=== PATIENT | male | born 1940 | race Caucasian/White ===

== ENCOUNTER 2018-01-11 05:51 | Day surgery (SDC) | payer MEDICARE ==
[2017-12-27 11:45] LABS: HEMATOCRIT 42.7 % (37.9-51.0); HEMOGLOBIN 14.7 g/dL (13.5-17.0); MEAN CORPUSCULAR HEMOGLOBIN 33.1 pg (27.0-33.4); MEAN CORPUSCULAR HGB CONC 34.6 g/dL (32.0-36.0); MEAN CORPUSCULAR VOLUME 96 fl (80-97); PLATELET COUNT 203 10^3/uL (150-450); RED BLOOD COUNT 4.46 10^6/uL (4.35-5.55); RED CELL DISTRIBUTION WIDTH 12.5 % (11.5-14.0); WHITE BLOOD COUNT 3.7 10^3/uL (4.0-10.5)
[2017-12-27 11:56] LABS: INTERNATIONAL RATION (INR) 1.02; PARTIAL THROMBOPLASTIN TIME 33.6 SEC (23.5-35.8); PROTHROMBIN TIME 14.1 SEC (11.4-15.4)
[2017-12-27 12:15] LABS: ANION GAP 9 (5-19); BLOOD UREA NITROGEN 18 mg/dL (7-20); CALCIUM 9.6 mg/dL (8.4-10.2); CARBON DIOXIDE 29 mmol/L (22-30); CHLORIDE 104 mmol/L (98-107); GLUCOSE 118 mg/dL (75-110); POTASSIUM 4.4 mmol/L (3.6-5.0)
--- NOTE | 2017-12-27 19:23 | EKG REPORT ---
SEVERITY:- NORMAL ECG - SINUS RHYTHM : Confirmed by: Balbina Virgen 27-Dec-2017 19:21:58
[~2018-01-11 05:51] MED LIST: CEFAZOLIN 1 GM/D5W RTU 1 GM/50 ML RTUPB IV PRN; LACTATED RINGERS 1000 ML IV PRN; LIDOCAINE 0.5% INJ-PF (5 MG/ML) 50 ML SDV SUBCUT PRN; LIDOCAINE 1%/EPINEPHRINE INJ 20 ML VIAL ONE; POVIDONE-IODINE 5% OPH PREP SOLN 30 ML ONE; SODIUM BICARBONATE 8.4% INJ 50 MEQ/50 ML DISP.SYRIN ONE
[2018-01-11] MEDS ORDERED: FENTANYL CITRATE INJ/PF 100 MCG/2 ML AMPUL ONE (07:07)
[2018-01-11] MEDS ORDERED: MIDAZOLAM 2 MG/2 ML INJ ONE (07:07)
[2018-01-11] MEDS ORDERED: LIDOCAINE 2% INJ-PF (20 MG/ML) 10 ML AMPUL ONE (07:07)
[2018-01-11] MEDS ORDERED: PROPOFOL INJ 200 MG/20 ML VIAL IV ONE ×2 (07:08→09:10)
[2018-01-11] MEDS ORDERED: PROMETHAZINE HCL INJ 25 MG/1 ML VIAL IV PRN (08:36)
[2018-01-11] MEDS ORDERED: ONDANSETRON HCL INJ/PF 4 MG/2 ML SDV IV PRN (08:36)
[2018-01-11] MEDS ORDERED: DIPHENHYDRAMINE HCL 50 MG/ML VIAL IV PRN (08:36)
--- NOTE | 2018-01-11 10:23 | Operative Report ---
Operative Report DATE OF SURGERY: 01/11/18 PREOPERATIVE DIAGNOSIS: Biopsy-proven basal cell carcinoma of the left tip of nose POSTOPERATIVE DIAGNOSIS: Same OPERATION: Excision of basal cell carcinoma from the left tip of nose with frozen section margin control and reconstruction with a full-thickness graft taken from the left clavicular area. a bolus tie-over dressing was used to support the graft and anchored in place. SURGEON: QUEENIE WHITFIELD ANESTHESIA: LMAC TISSUE REMOVED OR ALTERED: Basal cell carcinoma COMPLICATIONS: None ESTIMATED BLOOD LOSS: Minimal PROCEDURE: The patient was brought into the operating room. The patient was laid on the operating room table in a supine position. The patient was prepped and draped in a sterile and aseptic fashion. After a timeout we then went ahead and marked the area on the left tip of the nose to be resected. The 12:00 margin the nasion. The 3:00 margin was towards the left side. The 6:00 margin was towards the upper lip. The 9:00 margin was towards the right side. Then went ahead and anesthetize the area with 1% lidocaine with epinephrine. Then went ahead and excise the area. Stitch was placed at 12:00 and it was sent for frozen section. Frozen section results came back that the deep and lateral margins were clear. We irrigated the wound with Betadine sterile water to lyse any remaining cancer cells. We then went ahead and decided that because of the size of the defect we will proceed with a skin graft. Decided to harvest the graft from left clavicular area. We then went ahead and harvest the full-thickness graft. We closed the area with 4-0 Vicryl sutures and the skin was then closed with 4- 0 PDS with knots being tied on the outside and a support stitch in the center. At the end of the case tincture of benzoin and Steri-Strips were applied with a light pressure dressing. Graft was then defatted to the appropriate size and placed into the area of defect. It was then sutured into place with 5-0 Prolene sutures leaving one end long. After all the sutures were placed we then went ahead and applied Xeroform. Then went ahead and created a bolus dressing and tied each suture 180 from each other. Then tied the sutures again to each other. Bacitracin was applied. 2 x 2's were applied and tincture benzoin and the dressing was taped into place. At the end of the case the patient was doing well and brought to the PAR for recovery The approximate size of the lesion was 1.1 cm x 1.1 cm. This dictation was performed using [employer] naturally speaking. If there are any inconsistencies please contact the dictating surgeon. Subjective: No complaints Objective: Vital signs stable afebrile No bleeding Dressing intact Assessment and plan: Doing well. Elevate the operative site. Resume medications. Take antibiotics for 1 day Follow-up Full instructions were given to the patient and family and they understand Portions of this note may be dictated using [employer] voice recognition software. Occasional variations and spelling and vocabulary could be possible and are unintentional. Additionally, there is a chance that some errors may not be caught or corrected. Please notify the offer of any discrepancies noted or if any statements are unclear.
--- NOTE | 2018-01-11 10:25 | Discharge Summary ---
Discharge Summary (SDC) - Discharge Final Diagnosis: Basal cell carcinoma of the left hip and nose Date of Surgery: 01/11/18 Condition: Good Treatment or Instructions: Antibiotics for 1 day, then discontinue. Elevate operative area to decrease swelling. Do not strain, or lift heavy objects. Call for excessive bleeding, increased temperature of 101, uncontrolled pain, or excessive nausea or vomiting. You may reach Dr. Freeman through his office at [phone]. In the event of an emergency after hours, then contact Dr. Freeman through [facility]. Return to the office for a postop check on . The time will be scheduled by the nursing staff of [facility] prior to discharge. Please give the patient a copy of their labs and EKG so they can bring this to their PMD. Thank you Portions of this note may be dictated using [employer] voice recognition software. Occasional variations and spelling and vocabulary could be possible and are unintentional. Additionally, there is a chance that some errors may not be caught or corrected. Please notify the offer of any discrepancies noted or if any statements are unclear. Referrals: DANAE RODRIGUEZ MD [Primary Care Provider] - Discharge Diet: As Tolerated Report the Following to Your Physician Immediately: Unusual Bleeding - Keep head elevated. No bending or straining. Do not disturb the graft. Do not touch the nose. Sneeze through the mouth. Try not to blow the nose.
[2018-01-11 12:21] VITALS: BP 120/78
== END 2018-01-11 12:00 | disposition home or self-care (01) ==
LOC: OROUT 05:51
PROVIDERS: ATTEND Plastic Surgery
PROC: 0HR1X73 Replacement of Face Skin with Autologous Tissue Substitute, Full Thickness, External Approach (ICD-10-PCS; principal; 2018-01-11 08:00)
DX: C44.311 Basal cell carcinoma of skin of nose (principal); L57.0 Actinic keratosis; M06.9 Rheumatoid arthritis, unspecified; Z79.01 Long term (current) use of anticoagulants; Z85.46 Personal history of malignant neoplasm of prostate; Z79.899 Other long term (current) drug therapy; Z79.82 Long term (current) use of aspirin; Z87.891 Personal history of nicotine dependence
CPT/HCPCS: 93005; 36415; 85027; 85610; 85730; 80048; 88305 ×2; 88331 ×2; 93010; 11642; 15260; J2250; J0690; J3490 ×4; J2704; 300; J3010

== ENCOUNTER 2018-06-12 08:46 | Emergency (ER) | payer MEDICARE ==
[2018-06-12] MEDS ORDERED: ONDANSETRON HCL INJ/PF 4 MG/2 ML SDV IV ONE (09:52)
[2018-06-12] MEDS ORDERED: NORMAL SALINE 1000 ML 1,000 ML IV ONE (09:52)
[2018-06-12] MEDS ORDERED: MORPHINE SULFATE 10 MG/ML INJ IV ONE (09:52)
--- NOTE | 2018-06-12 09:56 | ER Document Report ---
ED Medical Screen (RME) - General Chief Complaint: Abdominal Pain Stated Complaint: ABDOMINAL PAIN Time Seen by Provider: 06/12/18 09:52 Mode of Arrival: Ambulatory Information source: Patient Notes: Patient presents with a sudden onset of lower abdominal pain which started this morning. He denies chest pain or shortness of breath. Patient has nausea but no vomiting or diarrhea. He also denies fever or chills. I have greeted and performed a rapid initial assessment of this patient. A comprehensive ED assessment and evaluation of the patient, analysis of test results and completion of the medical decision making process will be conducted by additional ED providers. TRAVEL OUTSIDE OF THE [place] IN LAST 30 DAYS: No - Related Data Allergies/Adverse Reactions: bacitracin [From Neosporin ([id number])] Allergy (Verified 12/27/17 12:02) RASH latex Allergy (Verified 12/27/17 12:02) RASH neomycin [From Neosporin ([id number]-ibq-tvned)] Allergy (Verified 12/27/17 12:02) RASH polymyxin B [From Neosporin (foi-fpi-tftko)] Allergy (Verified 12/27/17 12:02) RASH PLASTIC BANDAID Allergy (Severe, Uncoded 12/27/17 12:02) RASH Past Medical History - Social History Chew tobacco use (# tins/day): No Frequency of alcohol use: None Drug Abuse: None - Past Medical History Cardiac Medical History: Reports: Hx Hypercholesterolemia Denies: Hx Coronary Artery Disease, Hx Heart Attack, Hx Hypertension Pulmonary Medical History: Denies: Hx Asthma, Hx Bronchitis, Hx COPD, Hx Pneumonia Neurological Medical History: 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 Denies: Hx Seizures Renal/ Medical History: Denies: Hx Peritoneal Dialysis Musculoskeltal Medical History: Reports Hx Arthritis - Lower back, LEFT HIP. Past Surgical History: Reports: Hx Orthopedic Surgery - lower back and neck - Immunizations Hx Diphtheria, Pertussis, Tetanus Vaccination: Yes History of Influenza Vaccine for 06/2017 - 11/2017 Season: Yes Influenza Administration Date for 06/2017 - 11/2017 Season: 06/27/17 Physical Exam - Vital signs Vitals: Temp Pulse Resp BP Pulse Ox 98.0 F 99 16 149/79 H 96 06/12/18 08:52 06/12/18 08:52 06/12/18 08:52 06/12/18 08:52 06/12/18 08:52 Course - Vital Signs Vital signs: Temp Pulse Resp BP Pulse Ox 98.0 F 99 16 149/79 H 96 06/12/18 08:52 06/12/18 08:52 06/12/18 08:52 06/12/18 08:52 06/12/18 08:52 Doctor's Discharge - Discharge Referrals: DANAE RODRIGUEZ MD [Primary Care Provider] - Follow up as needed
[2018-06-12 10:24] LABS: ABSOLUTE LYMPHOCYTES (AUTO) 0.4 10^3/uL (0.5-4.7); ABSOLUTE MONOCYTES (AUTO) 0.4 10^3/uL (0.1-1.4); ABSOLUTE NEUT (AUTO) 5.9 10^3/uL (1.7-8.2); BASOPHILS % (AUTO) 0.2 % (0-2); EOSINOPHILS % (AUTO) 0.1 % (0-6); HEMATOCRIT 44.2 % (37.9-51.0); HEMOGLOBIN 15.4 g/dL (13.5-17.0); LYMPHOCYTES % (AUTO) 5.5 % (13-45); MEAN CORPUSCULAR HEMOGLOBIN 33.2 pg (27.0-33.4); MEAN CORPUSCULAR HGB CONC 34.8 g/dL (32.0-36.0); MEAN CORPUSCULAR VOLUME 95 fl (80-97); MONOCYTES % (AUTO) 5.6 % (3-13); PLATELET COUNT 247 10^3/uL (150-450); RED BLOOD COUNT 4.64 10^6/uL (4.35-5.55); RED CELL DISTRIBUTION WIDTH 13.1 % (11.5-14.0); SEGMENTED NEUTROPHILS % (AUTO) 88.6 % (42-78); TOTAL CELLS COUNTED % (AUTO) 100 %; WHITE BLOOD COUNT 6.6 10^3/uL (4.0-10.5)
[2018-06-12 10:37] LABS: ALANINE AMINOTRANSFERASE 26 U/L (21-72); ALBUMIN 4.2 g/dL (3.5-5.0); ALKALINE PHOSPHATASE 99 U/L (38-126); ANION GAP 8 (5-19); ASPARTATE AMINO TRANSFERASE 28 U/L (17-59); BILIRUBIN,DIRECT 0.4 mg/dL (0.0-0.4); BILIRUBIN,TOTAL 0.7 mg/dL (0.2-1.3); BLOOD UREA NITROGEN 20 mg/dL (7-20); CALCIUM 9.9 mg/dL (8.4-10.2); CARBON DIOXIDE 27 mmol/L (22-30); CHLORIDE 106 mmol/L (98-107); GLUCOSE 136 mg/dL (75-110); LIPASE 89.1 U/L (23-300); POTASSIUM 4.3 mmol/L (3.6-5.0); SODIUM 141.4 mmol/L (137-145); TOTAL PROTEIN 7.1 g/dL (6.3-8.2)
[2018-06-12 10:42] LABS: APPEARANCE,URINE CLEAR; BILIRUBIN,URINE NEGATIVE (NEGATIVE); CALCIUM OXALATE CRYSTALS,URINE FEW /HPF; COLOR,URINE YELLOW; GLUCOSE, URINE NEGATIVE (NEGATIVE); KETONES,URINE 25 mg/dL (NEGATIVE); URINE SPECIFIC GRAVITY 1.023
[2018-06-12 10:43] LABS: LEUKOCYTE ESTERASE,URINE NEGATIVE (NEGATIVE); NITRITE,URINE NEGATIVE (NEGATIVE); PROTEIN,URINE 30 mg/dL (NEGATIVE)
--- NOTE | 2018-06-12 11:58 | RADIOLOGY REPORT (SQ) ---
EXAM DESCRIPTION: CT ABD/PELVIS WITH IV ONLY COMPLETED DATE/TIME: 06/12/2018 11:43 am REASON FOR STUDY: abdominal pain COMPARISON: CT chest 02/15/2013 TECHNIQUE: CT scan of the abdomen and pelvis performed using helical scanning technique with dynamic intravenous contrast injection. No oral contrast. Images reviewed with lung, soft tissue, and bone windows. Reconstructed coronal and sagittal MPR images reviewed. Delayed images for evaluation of the urinary system also acquired. All images stored on PACS. All CT scanners at this facility use dose modulation, iterative reconstruction, and/or weight based d osing when appropriate to reduce radiation dose to as low as reasonably achievable (ALARA). [facility]: Dose Right [facility]: CareDose [facility]: Dose Right [facility]: Teradose 4D [facility]: Visible Path CONTRAST TYPE AND DOSE: contrast/concentration: Isovue 350.00 mg/ml; Total Contrast Delivered: 86.0 ml; Total Saline Delivered: 69.0 ml RENAL FUNCTION: Creatinine 1.4 RADIATION DOSE: CT Rad equipment meets quality standard of care and radiation dose reduction techniq ues were employed. CTDIvol: 8.3 - 11.4 mGy. DLP: 1107 mGy-cm.. LIMITATIONS: None. FINDINGS: There is a 4-5 mm right distal ureteral stone at the ureterovesical junction. This causes moderate right hydronephrosis and hydroureter. Stone is best shown on axial image 81 and coronal im age 49. There is high-grade urinary outflow obstruction, with a dense right-sided nephrogram and little excre tion of contrast into the right renal pelvis and ureter on the 5 minutes delay image. There is a right mid-pole 2.5 cm cyst. No masses. No other intrarenal nonobstructive stones. LOWER CHEST: No significant findings. No nodules or infiltrates. LIVER: Normal size. No masses. No dilated ducts. SPLEEN: Normal size. No focal lesions. PANCREAS: No masses. No significant calcifications. No adjacent inflammation or peripancreatic fluid collections. Pancreatic duct not dilated. GALLBLADDER: No identified stones by CT criteria. No inflammatory changes to suggest cholecystitis. ADRENAL GLANDS: No significant masses or asymmetry. RIGHT KIDNEY AND URETER: As above LEFT KIDNEY AND URETER: No solid masses. 1.5 cm right midpole cortical cyst. No significant calcifi cations. No hydronephrosis or hydroureter. AORTA AND VESSELS: No aneurysm. No dissection. Renal arteries, SMA, celiac without stenosis. RETROPERITONEUM: No retroperitoneal adenopathy, hemorrhage or masses. BOWEL AND PERITONEAL CAVITY: Moderate stool throughout the colon. Sigmoid diverticuli without CT si gns of acute diverticulitis No masses or inflammatory changes. No free fluid or peritoneal masses. APPENDIX: Normal. PELVIS: No mass. No free fluid. Normal bladder. ABDOMINAL WALL: No masses. No hernias. BONES: No significant or acute findings. OTHER: No other significant finding. IMPRESSION: 4 to 5 mm distal right ureteral stone causing moderate right hydronephrosis, hydroureter , perinephric stranding in urinary outflow obstruction. TECHNICAL DOCUMENTATION: JOB ID: [id number] Quality ID # [id number]: Final reports with documentation of one or more dose reduction techniques (e.g., Au tomated exposure control, adjustment of the mA and/or kV according to patient size, use of iterative reconstruction technique) 2010 [employer]- All Rights Reserved Reading location - IP/workstation name: [facility]
[2018-06-12] MEDS ORDERED: HYDROCODONE/ACETAMINOPHEN 5-325 MG (6 TAB/ER DISP) PO PRN (12:31)
--- NOTE | 2018-06-12 12:31 | ER Document Report ---
ED General - General Chief Complaint: Abdominal Pain Stated Complaint: ABDOMINAL PAIN Time Seen by Provider: 06/12/18 09:52 Mode of Arrival: Ambulatory TRAVEL OUTSIDE OF THE [place] IN LAST 30 DAYS: No - HPI Patient complains to provider of: Right-sided abdominal pain - Related Data Allergies/Adverse Reactions: bacitracin [From Neosporin ([id number]-acl-fyydw)] Allergy (Verified 12/27/17 12:02) RASH latex Allergy (Verified 12/27/17 12:02) RASH neomycin [From Neosporin ([id number]-adq-wlxzn)] Allergy (Verified 12/27/17 12:02) RASH polymyxin B [From Neosporin (fli-suo-eebov)] Allergy (Verified 12/27/17 12:02) RASH PLASTIC BANDAID Allergy (Severe, Uncoded 12/27/17 12:02) RASH Past Medical History - General Information source: Patient - Social History Smoking Status: Never Smoker Chew tobacco use (# tins/day): No Frequency of alcohol use: None Drug Abuse: None Family History: Reviewed & Not Pertinent Patient has suicidal ideation: No Patient has homicidal ideation: No - Past Medical History Cardiac Medical History: Reports: Hx Hypercholesterolemia Denies: Hx Coronary Artery Disease, Hx Heart Attack, Hx Hypertension Pulmonary Medical History: Denies: Hx Asthma, Hx Bronchitis, Hx COPD, Hx Pneumonia Neurological Medical History: 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 Denies: Hx Seizures Renal/ Medical History: Denies: Hx Peritoneal Dialysis Musculoskeletal Medical History: Reports Hx Arthritis - Lower back, LEFT HIP. Past Surgical History: Reports: Hx Orthopedic Surgery - lower back and neck - Immunizations Hx Diphtheria, Pertussis, Tetanus Vaccination: Yes Hx Pneumococcal Vaccination: 06/27/10 Review of Systems - Review of Systems -: Yes All other systems reviewed and negative Physical Exam - Vital signs Vitals: Temp Pulse Resp BP Pulse Ox 98.0 F 99 16 149/79 H 96 06/12/18 08:52 06/12/18 08:52 06/12/18 08:52 06/12/18 08:52 06/12/18 08:52 - General General appearance: Alert In distress: Mild - HEENT Head: Normocephalic Eyes: Normal Conjunctiva: Normal Cornea: Normal Extraocular movements intact: Yes - Respiratory Respiratory status: No respiratory distress Chest status: Nontender Breath sounds: Normal Chest palpation: Normal - Cardiovascular Rhythm: Regular Heart sounds: Normal auscultation Murmur: No - Abdominal Inspection: Normal Distension: No distension Bowel sounds: Normal - Back Back: CVA tenderness - Marked tenderness along the right side to percussion - Extremities General upper extremity: Normal inspection, Nontender, Normal ROM, Normal strength General lower extremity: Normal inspection, Nontender, Normal ROM, Normal strength - Neurological Neuro grossly intact: Yes Cognition: Normal Orientation: AAOx4 [place] Coma Scale Eye Opening: Spontaneous [place] Coma Scale Verbal: Oriented Aura Coma Scale Motor: Obeys Commands [place] Coma Scale Total: 15 Speech: Normal Cranial nerves: Normal Cerebellar coordination: Normal Motor strength normal: LUE, RUE, LLE, RLE - Psychological Associated symptoms: Normal affect Course - Re-evaluation Re-evalutation: 06/12/18 15:38 77-year-old man presents for evaluation of xi pain. Through triage she had a urinalysis as well as a CMP CBC and CT of the abdomen and pelvis. On examination the patient's obviously uncomfortable he has had stuttering pain along the right side similar to what might be expected from her nephrolithiasis. He has profound tenderness along the right CVA as well as diffuse tenderness through the abdomen. He believes that this may be related to some MiraLAX which he took yesterday. Urinalysis demonstrates vic hematuria, he does have also a nephrolithiasis along the right side. Given that this patient has a known nephrolithiasis at this time believe that likely he is safe for discharge home with return precautions and follow-up with a urologist, he is given strict return precautions related to fever, emesis, or worsening pain. He is going to follow-up, previously he had been diagnosed with prostate cancer status post treatment had been in remission. He has no other obvious abnormalities identified CT imaging, he is complaint free at this time his pain is greatly improved. We will give prescription for brief course of narcotic pain control instructions to utilize ibuprofen as well as to continue his home Flomax as he has previously. - Vital Signs Vital signs: Temp Pulse Resp BP Pulse Ox 98.0 F 99 16 149/79 H 96 06/12/18 08:52 06/12/18 08:52 06/12/18 08:52 06/12/18 08:52 06/12/18 08:52 - Laboratory Result Diagrams: 06/12/18 09:45 06/12/18 09:45 Laboratory results interpreted by me: 06/12/18 06/12/18 06/12/18 09:20 09:45 09:45 Seg Neutrophils % 88.6 H Lymphocytes % 5.5 L Absolute Lymphocytes 0.4 L Creatinine 1.41 H Est GFR ( Amer) 59 L Est GFR (Non-Af Amer) 49 L Glucose 136 H Urine Protein 30 H Urine Ketones 25 H Urine Blood LARGE H Urine Urobilinogen 2.0 H Discharge - Discharge Clinical Impression: Nephrolithiasis Abdominal pain Qualifiers: Abdominal location: unspecified location Qualified Code(s): R10.9 - Unspecified abdominal pain Constipation Qualifiers: Constipation type: unspecified constipation type Qualified Code(s): K59.00 - Constipation, unspecified Condition: Good Disposition: HOME, SELF-CARE Instructions: Ibuprofen (General) ([facility]), Kidney Stone ([facility]) Additional Instructions: Your seen today in the emergency department for your kidney stone. He had an evaluation including a physical exam, tests of your blood, and a CT of your abdomen and pelvis. It looks like you have a kidney stone along the right side. Continue to use your Flomax. Use the pain medicine only as needed prescribed to you. Use ibuprofen every 5-6 hours, 400 mg for pain. Return for fevers higher than 101. Prescriptions: Hydrocodone/Acetaminophen [[place] 5-325 mg Tablet] 1 tab PO Q6H PRN #12 tablet PRN Reason: Referrals: DANAE RODRIGUEZ MD [Primary Care Provider] - Follow up as needed
[2018-06-12 13:28] VITALS: BP 104/61
--- NOTE | 2018-06-13 05:22 | EKG REPORT ---
SEVERITY:- BORDERLINE ECG - SINUS RHYTHM PROBABLE LEFT ATRIAL ABNORMALITY : Confirmed by: Balbina Virgen 13-Jun-2018 05:20:59
== END 2018-06-12 13:24 | disposition home or self-care (01) ==
LOC: ER 08:46
DX: N20.0 Calculus of kidney (principal); K59.00 Constipation, unspecified; R10.9 Unspecified abdominal pain; Z91.040 Latex allergy status; Z88.8 Allergy status to other drugs, medicaments and biological substances; R40.2412 Glasgow coma scale score 13-15, at arrival to emergency department
CPT/HCPCS: 93005; 99284; 96361; 96374; 96375; 36415; 87040; 87086; 83690; 85025; 80053; 81001; 74177; 93010; J2270; J2405; A9270

== ENCOUNTER 2018-06-16 07:53 | Emergency (ER) | payer MEDICARE ==
[2018-06-16] MEDS ORDERED: MORPHINE SULFATE 10 MG/ML INJ IV ONE ×2 (08:13→11:05)
[2018-06-16] MEDS ORDERED: ONDANSETRON HCL INJ/PF 4 MG/2 ML SDV IV ONE ×2 (08:13→11:05)
--- NOTE | 2018-06-16 09:43 | ER Document Report ---
ED GI/ - General Mode of Arrival: Ambulatory Information source: Patient TRAVEL OUTSIDE OF THE [place] IN LAST 30 DAYS: No - General Chief Complaint: Possible Kidney Stone Stated Complaint: FLANK PAIN Time Seen by Provider: 06/16/18 08:05 Notes: 77 year old male that presents to the emergency department today with complaints of right sided flank pain. Patient was seen here 4 days ago and was diagnosed with a kidney stone. Patient was okay after discharge with minimal pain until 0330 this morning when he developed increasing pain. Patient was found to have a 4-5 mm distal ureteral stone then. Patient denies fevers. ( HASEEB VILLARREAL) - Related Data Allergies/Adverse Reactions: bacitracin [From Neosporin ([id number]-rrg-zkijj)] Allergy (Verified 06/16/18 07:54) RASH latex Allergy (Verified 06/16/18 07:54) RASH neomycin [From Neosporin ([id number]-rqq-[id number])] Allergy (Verified 06/16/18 07:54) RASH polymyxin B [From Neosporin (dth-pci-tjfil)] Allergy (Verified 06/16/18 07:54) RASH PLASTIC BANDAID Allergy (Severe, Uncoded 06/16/18 07:54) RASH Past Medical History - General Information source: Patient - Social History Smoking Status: Former Smoker Chew tobacco use (# tins/day): No Frequency of alcohol use: None Drug Abuse: None Family History: Reviewed & Not Pertinent Patient has suicidal ideation: No Patient has homicidal ideation: No - Past Medical History Cardiac Medical History: Reports: Hx Hypercholesterolemia Neurological Medical History: 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 Past Surgical History: Reports: Hx Orthopedic Surgery - lower back and neck - Immunizations Hx Diphtheria, Pertussis, Tetanus Vaccination: Yes Hx Pneumococcal Vaccination: 06/27/10 Review of Systems - Review of Systems Constitutional: denies: Fever EENT: No symptoms reported Cardiovascular: No symptoms reported Respiratory: No symptoms reported Gastrointestinal: No symptoms reported Genitourinary: See HPI, Flank pain - right Male Genitourinary: No symptoms reported Musculoskeletal: No symptoms reported Skin: No symptoms reported Hematologic/Lymphatic: No symptoms reported Neurological/Psychological: No symptoms reported -: Yes All other systems reviewed and negative Physical Exam - Vital signs Vitals: Temp Pulse Resp BP Pulse Ox 97.6 F 101 H 24 H 118/75 98 06/16/18 07:58 06/16/18 07:58 06/16/18 07:58 06/16/18 07:58 06/16/18 07:58 - Notes Notes: Physical Exam: General: Alert, appears uncomfortable secondary to pain. HEENT: Normocephalic. Atraumatic. PERRL. Extraocular movements intact. Oropharynx clear. Neck: Supple. Non-tender. Respiratory: No respiratory distress. Clear and equal breath sounds bilaterally. Cardiovascular: Regular rate and rhythm. Abdominal: Normal Inspection. Non-tender. No distension. Normal Bowel Sounds. Back: Right CVA tenderness to percussion. No deformity or step off. Extremities: Moves all four extremities. Upper extremities: Normal inspection. Normal ROM. Lower extremities: Normal inspection. No edema. Normal ROM. Neurological: Normal cognition. AAOx4. Normal speech. Psychological: Normal affect. Normal Mood. Skin: Warm. Dry. Normal color. (HASEEB VILLARREAL) - Vital Signs Vital signs: Temp Pulse Resp BP Pulse Ox 97.6 F 101 H 24 H 118/75 98 06/16/18 07:58 06/16/18 07:58 06/16/18 07:58 06/16/18 07:58 06/16/18 07:58 - Laboratory Laboratory results interpreted by me: 06/16/18 11:10 Urine Ketones 20 H Urine Urobilinogen 2.0 H Discharge - Discharge Clinical Impression: Renal colic on right side Condition: Stable Disposition: HOME, SELF-CARE Additional Instructions: Kidney Stone You are passing or have passed a kidney stone. These stones are usually due to increased calcium or uric acid concentrations in your urine. Stones within the kidney itself are not painful. The pain occurs as the stone leaves the kidney to pass down the long tube, called the ureter, leading to the bladder. If the stone is small, it will usually pass by itself. Most patients can pass the stone at home. You will usually receive medications for pain, nausea or vomiting, and sometimes a medication to assist in passing the kidney stone. However, if the pain is very severe or if vomiting prevents you from taking oral pain medications, you may need to return for further treatment. Drink three or four quarts of fluids per day. You will be given pain medication (if needed) and urine strainers. Strain all your urine to see if the stone passes. If your doctor has asked you to bring the stone in for analysis, return with the stone once it has passed. Return if pain or vomiting become severe, if you develop a high fever, if you are unable to pass your urine, or if other unusual symptoms occur. Take MiraLAX every day to help prevent constipation. Drink plenty of fluids throughout the day in the evening so that you are urinating at least every 2 hours. Take the pain medication as needed for pain. Take the Zofran for nausea if needed. Follow-up with your doctor if not improving, to move up your urology appointment. RETURN TO THE EMERGENCY ROOM IF ANY NEW OR WORSENING SYMPTOMS. Prescriptions: Ondansetron [Zofran Odt 4 mg Tablet] 1 - 2 tab PO Q4HP PRN #10 tab.rapdis PRN Reason: Oxycodone HCl/Acetaminophen [Percocet 5-325 mg Tablet] 1 - 2 tab PO ASDIR PRN # 15 tablet PRN Reason: Referrals: DANAE RODRIGUEZ MD [Primary Care Provider] - Follow up as needed Scribe Attestation: 06/16/18 11:10 I personally performed the services described in the documentation, reviewed and edited the documentation which was dictated to the scribe in my presence, and it accurately records my words and actions. (MELISSA FORD) Scribe Documentation - Scribe Written by Feli:: Feli Caceres, 06/16/2018 [id number] acting as scribe for :: Sarwat
[2018-06-16] MEDS ORDERED: NORMAL SALINE 1000 ML 1,000 ML IV ONE (11:08)
[2018-06-16 11:27] LABS: APPEARANCE,URINE CLEAR; BILIRUBIN,URINE NEGATIVE (NEGATIVE); COLOR,URINE YELLOW; GLUCOSE, URINE NEGATIVE (NEGATIVE); KETONES,URINE 20 mg/dL (NEGATIVE); LEUKOCYTE ESTERASE,URINE NEGATIVE (NEGATIVE); NITRITE,URINE NEGATIVE (NEGATIVE); PROTEIN,URINE NEGATIVE (NEGATIVE); URINE SPECIFIC GRAVITY 1.017
[2018-06-16 12:15] VITALS: BP 145/77
== END 2018-06-16 12:15 | disposition home or self-care (01) ==
LOC: ER 07:53
DX: N23 Unspecified renal colic (principal); Z87.891 Personal history of nicotine dependence
CPT/HCPCS: 96376; 99284; 96361; 96374; 96375; 81001; J2270; J2405

== ENCOUNTER 2019-03-31 02:06 | Inpatient (IN) | payer MEDICARE ==
[2019-03-31 03:55] LABS: ABSOLUTE EOSINOPHILS # (AUTO) 0.1 10^3/uL (0.0-0.6); ABSOLUTE LYMPHOCYTES (AUTO) 0.6 10^3/uL (0.5-4.7); ABSOLUTE MONOCYTES (AUTO) 0.3 10^3/uL (0.1-1.4); BASOPHILS % (AUTO) 0.3 % (0-2); EOSINOPHILS % (AUTO) 0.7 % (0-6); HEMATOCRIT 41.7 % (37.9-51.0); HEMOGLOBIN 14.3 g/dL (13.5-17.0); LYMPHOCYTES % (AUTO) 7.2 % (13-45); MEAN CORPUSCULAR HEMOGLOBIN 32.2 pg (27.0-33.4); MEAN CORPUSCULAR HGB CONC 34.3 g/dL (32.0-36.0); MEAN CORPUSCULAR VOLUME 94 fl (80-97); MONOCYTES % (AUTO) 3.9 % (3-13); PLATELET COUNT 206 10^3/uL (150-450); RED BLOOD COUNT 4.44 10^6/uL (4.35-5.55); RED CELL DISTRIBUTION WIDTH 13.3 % (11.5-14.0); SEGMENTED NEUTROPHILS % (AUTO) 87.9 % (42-78); TOTAL CELLS COUNTED % (AUTO) 100 %
[2019-03-31 04:08] LABS: APPEARANCE,URINE CLEAR; BILIRUBIN,URINE NEGATIVE (NEGATIVE); CALCIUM OXALATE CRYSTALS,URINE MODERATE /HPF; COLOR,URINE YELLOW; GLUCOSE, URINE NEGATIVE (NEGATIVE); KETONES,URINE NEGATIVE (NEGATIVE); LEUKOCYTE ESTERASE,URINE NEGATIVE (NEGATIVE); NITRITE,URINE NEGATIVE (NEGATIVE); PROTEIN,URINE NEGATIVE (NEGATIVE); URINE SPECIFIC GRAVITY 1.027; UROBILINOGEN,URINE NEGATIVE mg/dL (<2.0)
[2019-03-31 04:14] LABS: ALANINE AMINOTRANSFERASE 21 U/L (21-72); ALBUMIN 4.4 g/dL (3.5-5.0); ALKALINE PHOSPHATASE 127 U/L (38-126); ANION GAP 7 (5-19); ASPARTATE AMINO TRANSFERASE 22 U/L (17-59); BILIRUBIN,DIRECT 0.2 mg/dL (0.0-0.4); BILIRUBIN,TOTAL 0.5 mg/dL (0.2-1.3); BLOOD UREA NITROGEN 28 mg/dL (7-20); CALCIUM 9.6 mg/dL (8.4-10.2); CARBON DIOXIDE 29 mmol/L (22-30); CHLORIDE 106 mmol/L (98-107); GLUCOSE 127 mg/dL (75-110); LIPASE 104.3 U/L (23-300); POTASSIUM 4.1 mmol/L (3.6-5.0); SODIUM 141.5 mmol/L (137-145)
[2019-03-31] MEDS ORDERED: NORMAL SALINE 1000 ML 1,000 ML IV ONE ×2 (04:25→06:24)
[2019-03-31] MEDS ORDERED: MORPHINE SULFATE 10 MG/ML INJ IV ONE (04:25)
[2019-03-31] MEDS ORDERED: ONDANSETRON HCL INJ/PF 4 MG/2 ML SDV IV ONE (04:25)
--- NOTE | 2019-03-31 04:27 | ER Document Report ---
ED Medical Screen (RME) - General Chief Complaint: Abdominal Pain >50 Stated Complaint: ABDOMINAL PAIN Time Seen by Provider: 03/31/19 04:20 Primary Care Provider: DANAE RODRIGUEZ MD [Primary Care Provider] - Follow up as needed Notes: 78-year-old male comes to the ED for chief complaint of mid abdominal pain that started last night. He states he is nauseated, he made himself vomit once but this did not resolve his symptoms. He had a normal bowel movement earlier during the day. He denies fever/chills, chest pain, flank pain. He denies any abdominal surgeries. Only past medical history reported is left hip replacement, remote back surgery, hyperlipidemia, BPH. TRAVEL OUTSIDE OF THE [place] IN LAST 30 DAYS: No - Related Data Allergies/Adverse Reactions: bacitracin [From Neosporin ([id number])] Allergy (Verified 06/16/18 07:54) RASH latex Allergy (Verified 06/16/18 07:54) RASH neomycin [From Neosporin ([id number])] Allergy (Verified 06/16/18 07:54) RASH polymyxin B [From Neosporin ([id number])] Allergy (Verified 06/16/18 07:54) RASH PLASTIC BANDAID Allergy (Severe, Uncoded 06/16/18 07:54) RASH Past Medical History - Social History Frequency of alcohol use: None Drug Abuse: None - Past Medical History Cardiac Medical History: Reports: Hx Hypercholesterolemia Denies: Hx Coronary Artery Disease, Hx Heart Attack, Hx Hypertension Pulmonary Medical History: Denies: Hx Asthma, Hx Bronchitis, Hx COPD, Hx Pneumonia Neurological Medical History: 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 Denies: Hx Seizures Renal/ Medical History: Reports: Hx Kidney Stones - 05/2018. Denies: Hx Peritoneal Dialysis Musculoskeltal Medical History: Reports Hx Arthritis - Lower back, LEFT HIP. Past Surgical History: Reports: Hx Orthopedic Surgery - lower back and neck - Immunizations Hx Diphtheria, Pertussis, Tetanus Vaccination: Yes History of Influenza Vaccine for 06/2017 - 11/2017 Season: Yes Influenza Administration Date for 06/2017 - 11/2017 Season: 06/27/17 Physical Exam - Abdominal Tenderness: Tender - Tender generally over the mid abdomen with some wincing, diffuse mild generalized tenderness otherwise. No specific guarding, no hernia noted, no rigidity. Course - Re-evaluation Re-evalutation: I have greeted and performed a rapid initial assessment of this patient. A comprehensive ED assessment and evaluation of the patient, analysis of test results and completion of the medical decision making process will be conducted by additional ED providers. - Laboratory Result Diagrams: 03/31/19 03:00 03/31/19 03:00 Laboratory results interpreted by me: 03/31/19 03/31/19 03:00 03:00 Seg Neutrophils % 87.9 H Lymphocytes % 7.2 L BUN 28 H Glucose 127 H Alkaline Phosphatase 127 H Doctor's Discharge - Discharge Referrals: DANAE RODRIGUEZ MD [Primary Care Provider] - Follow up as needed
--- NOTE | 2019-03-31 06:33 | ER Document Report ---
ED General - General Chief Complaint: Abdominal Pain >50 Stated Complaint: ABDOMINAL PAIN Time Seen by Provider: 03/31/19 04:20 Primary Care Provider: DANAE RODRIGUEZ MD [Primary Care Provider] - Follow up as needed TRAVEL OUTSIDE OF THE [place] IN LAST 30 DAYS: No - HPI Notes: Patient is a 78-year-old male who presents emergency department for evaluation of epigastric pain. It started at 11:30 at night. He states he believes it woke him from sleep. He states that it felt like a "rock was in his stomach." He took a Zantac. He induced a small amount of vomit with his finger. He states nothing seemed to make him feel better. He had a normal bowel movement on the morning of March 29. He states that there is no diarrhea, no melena or matting seizure. He states is not abnormal for him to go that long without a bowel movement. He denies any dysuria, hematuria, urinary frequency. No vic fevers. He states that he last ate around 530 or 6 yesterday evening. - Related Data Allergies/Adverse Reactions: bacitracin [From Neosporin ([id number]-[id number])] Allergy (Verified 06/16/18 07:54) RASH latex Allergy (Verified 06/16/18 07:54) RASH neomycin [From Neosporin ([id number]-sgn-[id number])] Allergy (Verified 06/16/18 07:54) RASH polymyxin B [From Neosporin (yym-gyc-qkrje)] Allergy (Verified 06/16/18 07:54) RASH PLASTIC BANDAID Allergy (Severe, Uncoded 06/16/18 07:54) RASH Home Medications: Zantac, statin Past Medical History - General Information source: Patient - Social History Smoking Status: Former Smoker Frequency of alcohol use: None Drug Abuse: None Family History: Reviewed & Not Pertinent Patient has suicidal ideation: No Patient has homicidal ideation: No - Past Medical History Cardiac Medical History: Reports: Hx Hypercholesterolemia Denies: Hx Coronary Artery Disease, Hx Heart Attack, Hx Hypertension Pulmonary Medical History: Denies: Hx Asthma, Hx Bronchitis, Hx COPD, Hx Pneumonia EENT Medical History: Reports: Other - Had a "mini stroke in his eye" Neurological Medical History: 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 Denies: Hx Seizures Renal/ Medical History: Reports: Hx Kidney Stones - 05/2018. Denies: Hx Peritoneal Dialysis GI Medical History: Reports: Hx Gastroesophageal Reflux Disease Musculoskeletal Medical History: Reports Hx Arthritis - Lower back, LEFT HIP. Past Surgical History: Reports: Hx Orthopedic Surgery - lower back and neck - Immunizations Hx Diphtheria, Pertussis, Tetanus Vaccination: Yes Hx Pneumococcal Vaccination: 06/27/10 Review of Systems - Review of Systems Constitutional: No symptoms reported EENT: No symptoms reported Cardiovascular: No symptoms reported Respiratory: No symptoms reported Gastrointestinal: See HPI Genitourinary: No symptoms reported Musculoskeletal: No symptoms reported Skin: No symptoms reported Neurological/Psychological: No symptoms reported Physical Exam - Vital signs Vitals: Temp Pulse Resp BP Pulse Ox 98.2 F 71 20 160/73 H 98 03/31/19 02:13 03/31/19 02:13 03/31/19 02:13 03/31/19 02:13 03/31/19 02:13 - Notes Notes: Vital signs reviewed, please refer to chart. Head is normocephalic, atraumatic. Pupils equal round, reactive to light. Neck is supple without meningismus. Heart is tachycardic with systolic murmur. Lungs are clear to auscultation bilaterally. Abdomen is soft, moderately tender upper abdomen, focus mostly in the right upper quadrant region, without rebound or guarding, normoactive bowel sounds throughout. Extremities without cyanosis, clubbing. Posterior calves are nontender. Peripheral pulses are equal. Skin is warm and dry. Patient is awake, alert, neurological exam is nonfocal. Course - Re-evaluation Re-evalutation: 03/31/19 06:33 Patient presents emergency department for evaluation of abdominal pain. He was originally seen via triage. The patient states he had minimal relief with the morphine. He remains significantly tender. At the time of my exam he did become much more tachycardic than he was at presentation. He was further given IV fluids. The patient was refusing CT scan of the abdomen pelvis with IV contrast. He states that he had reacted poorly to it in the past, although it does not sound like a vic allergy. I will go ahead and place a noncontrasted scan. I also ordered an EKG and troponin. We will continue to follow. 03/31/19 09:[address] scan was largely unremarkable. I did order chest x-ray, will send urine for culture as well. Despite adequate fluid resuscitation, patient's heart rate still remains in the 120s. Abdominal exam at this point now reveals voluntary guarding in the epigastric and right upper quadrant regions. This was a change from his arrival vital signs. I still do not have a clear etiology for his pain. We talked at length about my desire for a CT scan with IV contrast to further evaluate his abdomen. He voiced understanding to this. He did not really have a vic allergy to it, he just stated as if "his head was exploding" and he felt very agitated. I did go ahead and medicate him with Solu-Medrol, Pepcid, Benadryl. He agreed at that point to have CT scan performed. We will continue to follow. 03/31/19 13:[address] with IV contrast well. There was no signs of vascular insufficiency. He did have a dilated gallbladder, and I do have a strong suspicion for acute cholecystitis. Based on this finding, at [address] Mcdermott. He was in the operating room. He did, after finishing in the operating suite, come to the emergency department to evaluate the patient. He agrees with this assessment. He asked that the patient be administered Zosyn, a medicine consult be obtained. Will admit the patient for further care. 03/31/19 13:40 Medical consult called to Dr. Carvajal, who will see the patient. - Vital Signs Vital signs: Temp Pulse Resp BP Pulse Ox 98.1 F 71 18 129/72 H 97 03/31/19 06:30 03/31/19 02:13 03/31/19 11:02 03/31/19 11:02 03/31/19 11:02 - Laboratory Result Diagrams: 03/31/19 03:00 03/31/19 03:00 Laboratory results interpreted by me: 03/31/19 03/31/19 03:00 03:00 Seg Neutrophils % 87.9 H Lymphocytes % 7.2 L BUN 28 H Glucose 127 H Alkaline Phosphatase 127 H - Diagnostic Test Radiology reviewed: Reports reviewed Radiology results interpreted by me: 03/31/19 13:15 Chest X-Ray 03/31/19 07:53 IMPRESSION: No acute abnormality of the lungs. Stable scarring or atelectasis of the left lung base. Abdomen/Pelvis CT 03/31/19 09:12 IMPRESSION: 1. As on prior examination, there are no definite CT findings to explain acute abdominal pain. 2. Left inguinal hernia containing nonobstructed sigmoid colon. Severe sigmoid diverticulosis without evidence of acute diverticulitis. 3. Nonobstructive bilateral nephrolithiasis. 4. The gallbladder is mildly distended without evidence of calculus, wall thickening or biliary ductal dilation. 5. There is minimal aortic atherosclerosis without evidence of mesenteric vascular stenosis or occlusion. Findings discussed by telephone with Dr. Bruce, 1046 hours, 03/31/2019 Discharge - Discharge Clinical Impression: Acute cholecystitis Condition: Stable Disposition: ADMITTED INPATIENT Admitting Provider: Surgicalist - Dr. Mcdermott Unit Admitted: Surgical Floor Referrals: DANAE RODRIGUEZ MD [Primary Care Provider] - Follow up as needed
--- NOTE | 2019-03-31 07:34 | RADIOLOGY REPORT (SQ) ---
EXAM DESCRIPTION: CT ABDOMEN PELVIS WITHOUT IV CONTRAST COMPLETED DATE/TME: 03/31/2019 06:24 CLINICAL HISTORY: 78 years Male, epigastric pain Comparison: None. Technique: No contrast. Coronal and sagittal reformat. This exam was performed according to our departmental dose-optimization program, which includes automated exposure control, adjustment of the mA and/or kV according to patient size and/or use of iterative reconstruction technique.[facility]: Dose Right [facility]: CareDose [facility]: Dose Right [facility]: Teradose 4D [facility]: Elli LIMITATIONS: None Findings: 5.8 cm left inguinal hernia involves a large bowel at the junction of the sigmoid and left colon. Colonic diverticulosis. Coronary arterial calcification. Atherosclerotic vascular disease. Punctate bilateral nephrolithiasis measures up to 0.2 cm on the left. Likely benign renal cyst(s) measuring up to 2.0 cm on the left, not definitively characterized. Bilateral perinephric fat stranding, nonspecific. 4.4 cm diameter dilated gallbladder. Left total hip arthroplasty. Degenerative disc disease. No ascites. No pneumoperitoneum. Normal appendix. No bowel obstruction. No evidence of abdominal aortic aneurysm. Unenhanced lower thorax, abdominopelvic structures, and musculoskeleton appear otherwise grossly unremarkable. Impression: 1. 5.8 cm left inguinal large bowel hernia. No obstruction. 2. Punctate nephrolithiasis.
--- NOTE | 2019-03-31 08:25 | RADIOLOGY REPORT (SQ) ---
EXAM DESCRIPTION: CHEST SINGLE VIEW COMPLETED DATE/TIME: 03/31/2019 8:18 am REASON FOR STUDY: tachycardia, epigastric pain COMPARISON: 09/13/2014 EXAM PARAMETERS: NUMBER OF VIEWS: One view. TECHNIQUE: Single frontal radiographic view of the chest acquired. RADIATION DOSE: NA LIMITATIONS: None. FINDINGS: LUNGS AND PLEURA: Stable scarring or atelectasis of the left lung base. MEDIASTINUM AND HILAR STRUCTURES: No masses. Contour normal. HEART AND VASCULAR STRUCTURES: Heart normal in size. Normal vasculature. BONES: No acute findings. HARDWARE: None in the chest. OTHER: No other significant finding. IMPRESSION: No acute abnormality of the lungs. Stable scarring or atelectasis of the left lung base . TECHNICAL DOCUMENTATION: JOB ID: [id number] [employer]- All Rights Reserved Reading location - IP/workstation name: [email or web address]
[2019-03-31] MEDS ORDERED: FAMOTIDINE INJ/PF 20 MG/2 ML SDV IV ONE (08:57)
[2019-03-31] MEDS ORDERED: METHYLPREDNISOLONE INJ 125 MG/2 ML SDV IV ONE (08:57)
[2019-03-31] MEDS ORDERED: DIPHENHYDRAMINE HCL 50 MG/ML VIAL IV ONE (08:58)
--- NOTE | 2019-03-31 10:52 | RADIOLOGY REPORT (SQ) ---
EXAM DESCRIPTION: CT ABD/PELVIS WITH IV ONLY COMPLETED DATE/TIME: 03/31/2019 10:16 am REASON FOR STUDY: epigastric pain COMPARISON: 03/31/2019 TECHNIQUE: CT scan of the abdomen and pelvis performed using helical scanning technique with dynamic intravenous contrast injection. No oral contrast. Images reviewed with lung, soft tissue, and bone windows. Reconstructed coronal and sagittal MPR images reviewed. Delayed images for evaluation of the urinary system also acquired. All images stored on PACS. All CT scanners at this facility use dose modulation, iterative reconstruction, and/or weight based d osing when appropriate to reduce radiation dose to as low as reasonably achievable (ALARA). [facility]: Dose Right [facility]: CareDose [facility]: Dose Right [facility]: Teradose 4D [facility]: Data Symmetry CONTRAST TYPE AND DOSE: contrast/concentration: Isovue 350.00 mg/ml; Total Contrast Delivered: 91.0 ml; Total Saline Delivered: 70.0 ml RENAL FUNCTION: GFR > 60. RADIATION DOSE: CT Rad equipment meets quality standard of care and radiation dose reduction techniq ues were employed. CTDIvol: 8.8 - 12.2 mGy. DLP: 1190 mGy-cm.. LIMITATIONS: None. FINDINGS: LOWER CHEST: Bibasilar scarring or atelectasis. LIVER: Normal size. No masses. No dilated ducts. SPLEEN: Normal size. No focal lesions. PANCREAS: No masses. No significant calcifications. No adjacent inflammation or peripancreatic fluid collections. Pancreatic duct not dilated. GALLBLADDER: The gallbladder is mildly distended without evidence of calculus, wall thickening or abdulkadir iary ductal dilation. No inflammatory changes to suggest cholecystitis. ADRENAL GLANDS: No significant masses or asymmetry. RIGHT KIDNEY AND URETER: No solid masses. Small nonobstructive calculus. No hydronephrosis or hyd roureter. LEFT KIDNEY AND URETER: No solid masses. Small nonobstructive calculus. No hydronephrosis or hydr oureter. AORTA AND VESSELS: No aneurysm. No dissection. Renal arteries, SMA, celiac without stenosis. Minimal atherosclerosis. RETROPERITONEUM: No retroperitoneal adenopathy, hemorrhage or masses. BOWEL AND PERITONEAL CAVITY: No masses or inflammatory changes. No free fluid or peritoneal masses. Severe sigmoid diverticulosis without evidence of acute diverticulitis. APPENDIX: Not clearly visualized. PELVIS: No mass. No free fluid. Normal bladder. ABDOMINAL WALL: No masses. Indirect left inguinal hernia which contains nonobstructed sigmoid colon. BONES: No significant or acute findings. OTHER: No other significant finding. IMPRESSION: 1. As on prior examination, there are no definite CT findings to explain acute abdomina l pain. 2. Left inguinal hernia containing nonobstructed sigmoid colon. Severe sigmoid diverticulosis witho ut evidence of acute diverticulitis. 3. Nonobstructive bilateral nephrolithiasis. 4. The gallbladder is mildly distended without evidence of calculus, wall thickening or biliary ducta l dilation. 5. There is minimal aortic atherosclerosis without evidence of mesenteric vascular stenosis or occlu rossana. Findings discussed by telephone with Dr. Bruce, 1046 hours, 03/31/2019 TECHNICAL DOCUMENTATION: JOB ID: [id number] Quality ID # [id number]: Final reports with documentation of one or more dose reduction techniques (e.g., Au tomated exposure control, adjustment of the mA and/or kV according to patient size, use of iterative reconstruction technique) 2010 [employer]- All Rights Reserved Reading location - IP/workstation name: [email or web address]
[2019-03-31] MEDS ORDERED: PIPERACILLIN/TAZOBACTAM 3.375 GM VIAL IV ONE (13:15)
[2019-03-31] MEDS ORDERED: NORMAL SALINE 1000 ML 1,000 ML IV PRN (13:24)
[2019-03-31] MEDS ORDERED: KETOROLAC TROMETHAMINE INJ/PF 30 MG/1 ML SDV IV PRN (13:24)
--- NOTE | 2019-03-31 14:02 | EKG REPORT ---
SEVERITY:- BORDERLINE ECG - SINUS TACHYCARDIA CONSIDER ANTERIOR INFARCT : Confirmed by: Balbina Virgen 31-Mar-2019 14:01:19
--- NOTE | 2019-03-31 14:55 | PDOC H&P ---
History of Present Illness Admission Date/PCP: 03/31/19 14:27 DANAE DEL RIO MD Patient complains of: Acute abdominal pain History of Present Illness: NGA ESTEVEZ is a 78 year old male Seen in the emergency department arrived by ground rescue complaining of acute onset abdominal pain last p.m. associated with nausea and small episode of vomiting. Patient denies history of trauma, previous episodes, or associations with anyone with similar symptoms. Patient evaluated emergency department where he was found to become tachycardic. Laboratory profile essentially unremarkable. CT scan without contrast obtained showing a distended gallbladder. CT scan was repeated with IV contrast showing no significant change. He also has a nonincarcerated left inguinal hernia. Patient's tenderness persisted despite pain medication also associated with diaphoresis. Surgery was consulted, patient remained tachycardic at this time, with right upper quadrant tenderness. He was felt to be suffering from acute cholecystitis and was advised admission. Past Medical History Past Medical History: Hard of hearing, chronic cervical and lumbar disc disease, tremor involving right upper extremity; remote history of CVA with optic nerve issues. Local medical doctor is Dr. Danae Del Rio, [place], [place]; history of GERD and hypercholesterolemia. Cardiac Medical History: Reports: Hyperlipidema Denies: Coronary Artery Disease, Myocardial Infarction, Hypertension Pulmonary Medical History: Denies: Asthma, Bronchitis, Chronic Obstructive Pulmonary Disease (COPD), Pneumonia Neurological Medical History: Denies: Seizures GI Medical History: Reports: Gastroesophageal Reflux Disease Musculoskeltal Medical History: Reports: Arthritis - Lower back, LEFT HIP. Hematology: Denies: Anemia Past Surgical History Past Surgical History: History of multiple back surgeries, 2 lumbar 1 cervical spine; patient 6 weeks out from left hip replacement [place] Past Surgical History: Reports: Orthopedic Surgery - lower back and neck Social History Information Source: Patient Smoking Status: Former Smoker Frequency of Alcohol Use: None Hx Recreational Drug Use: No Family History Family History: None, Reviewed & Not Pertinent Parental Family History Reviewed: Yes Children Family History Reviewed: Yes Sibling(s) Family History Reviewed.: Yes Medication/Allergy Home Medications: Aspirin [Ecotrin 81 mg EC Tablet] 81 mg PO DAILY 03/31/19 Atorvastatin Calcium [Lipitor 20 mg Tablet] 20 mg PO QHS 03/31/19 Tamsulosin HCl [Flomax 0.4 mg Cap.sr] 0.4 mg PO Q12 03/31/19 Allergies/Adverse Reactions: bacitracin [From Neosporin ([id number])] Allergy (Verified 06/16/18 07:54) RASH latex Allergy (Verified 06/16/18 07:54) RASH neomycin [From Neosporin ([id number])] Allergy (Verified 06/16/18 07:54) RASH polymyxin B [From Neosporin ([id number])] Allergy (Verified 06/16/18 07:54) RASH PLASTIC BANDAID Allergy (Severe, Uncoded 06/16/18 07:54) RASH Review of Systems Constitutional: PRESENT: as per HPI Eyes: ABSENT: visual disturbances Ears: PRESENT: other Cardiovascular: ABSENT: chest pain, dyspnea on exertion, edema, orthropnea, palpitations Respiratory: ABSENT: cough, hemoptysis Genitourinary: PRESENT: as per HPI, other - Patient denies history of constipation; uncertain as to his last colonoscopy Neurological: PRESENT: focal weakness - Right upper extremity tremor Psychiatric: ABSENT: anxiety, depression, homidical ideation, suicidal ideation Endocrine: ABSENT: cold intolerance, heat intolerance, polydipsia, polyuria Physical Exam Vital Signs: Temp Pulse Resp BP Pulse Ox 98.1 F 71 18 129/72 H 97 03/31/19 06:30 03/31/19 02:13 03/31/19 11:02 03/31/19 11:02 03/31/19 11:02 Intake & Output 03/30/19 03/31/19 04/01/19 06:59 06:59 06:59 Weight 79.9 kg General appearance: PRESENT: mild distress Exam: Patient has evidence of scar to the nose consistent with previous basal cell cancer Head exam: PRESENT: normocephalic Eye exam: PRESENT: EOMI Ear exam: PRESENT: normal external ear exam Mouth exam: PRESENT: dry mucosa Throat exam: PRESENT: other - No exudate Respiratory exam: PRESENT: clear to auscultation abdulkadir Cardiovascular exam: PRESENT: tachycardia Pulses: PRESENT: normal carotid pulses, normal radial pulses, normal femoral pulses, normal dorsalis pedis pul GI/Abdominal exam: PRESENT: other - Tender right upper quadrant with guarding; hypoactive bowel sounds. Rectal exam: PRESENT: deferred Gentrourinary exam: PRESENT: scrotal swelling - Left side consistent with left inguinal hernia Extremities exam: PRESENT: full ROM Musculoskeletal exam: PRESENT: ambulatory Neurological exam: PRESENT: awake, oriented to person, oriented to place, oriented to time, oriented to situation Psychiatric exam: PRESENT: appropriate affect Results Laboratory Results: 03/31/19 03:00 03/31/19 03:00 03/31/19 03/31/19 03/31/19 03:00 03:00 03:00 WBC 8.0 RBC 4.44 Hgb 14.3 Hct 41.7 MCV 94 MCH 32.2 MCHC 34.3 RDW 13.3 Plt Count 206 Seg Neutrophils % 87.9 H Lymphocytes % 7.2 L Monocytes % 3.9 Eosinophils % 0.7 Basophils % 0.3 Absolute Neutrophils 7.0 Absolute Lymphocytes 0.6 Absolute Monocytes 0.3 Absolute Eosinophils 0.1 Absolute Basophils 0.0 Sodium 141.5 Potassium 4.1 Chloride 106 Carbon Dioxide 29 Anion Gap 7 BUN 28 H Creatinine 0.84 Est GFR ( Amer) > 60 Est GFR (Non-Af Amer) > 60 Glucose 127 H Calcium 9.6 Total Bilirubin 0.5 AST 22 ALT 21 Alkaline Phosphatase 127 H Total Protein 7.0 Albumin 4.4 Lipase 104.3 Urine Color YELLOW Urine Appearance CLEAR Urine pH 5.0 Ur Specific [place] 1.027 Urine Protein NEGATIVE Urine Glucose (UA) NEGATIVE Urine Ketones NEGATIVE Urine Blood NEGATIVE Urine Nitrite NEGATIVE Ur Leukocyte Esterase NEGATIVE Urine WBC (Auto) 4 Urine RBC (Auto) 2 03/31/19 03:00 Troponin I < 0.012 Impressions: Chest X-Ray 03/31/19 07:53 IMPRESSION: No acute abnormality of the lungs. Stable scarring or atelectasis of the left lung base. Abdomen/Pelvis CT 03/31/19 09:12 IMPRESSION: 1. As on prior examination, there are no definite CT findings to explain acute abdominal pain. 2. Left inguinal hernia containing nonobstructed sigmoid colon. Severe sigmoid diverticulosis without evidence of acute diverticulitis. 3. Nonobstructive bilateral nephrolithiasis. 4. The gallbladder is mildly distended without evidence of calculus, wall thickening or biliary ductal dilation. 5. There is minimal aortic atherosclerosis without evidence of mesenteric vascular stenosis or occlusion. Findings discussed by telephone with Dr. Bruce, 1046 hours, 03/31/2019 Assessment & Plan - Diagnosis (1) Acute cholecystitis Is this a current diagnosis for this admission?: Yes Plan: Impression: Acute cholecystitis based on clinical history, physical exam, CT scan findings; suspect early sepsis to explain patient's diaphoresis and tachycardia. Recommendations: 1. Admit to surgical service, keep n.p.o., on IV fluids intravenous antibiotics. EKG shows sinus tach left atrial enlargement. 2. As patient was eating nabs in the emergency department just prior to my arrival. He is not a candidate to undergo interval cholecystectomy this afternoon. We will post him for laparoscopic cholecystectomy tomorrow, April 01, by Dr. Finley. 3. We will have will service consult and assist with managing chronic medical issues. (2) Dehydration Is this a current diagnosis for this admission?: Yes (3) Hard of hearing Is this a current diagnosis for this admission?: Yes (4) Left inguinal hernia Is this a current diagnosis for this admission?: Yes (5) Hypercholesterolemia Is this a current diagnosis for this admission?: Yes - Time Time Spent: 30 to 50 Minutes Smoking Cessation Education: 3 to 10 minutes Medications reviewed and adjusted accordingly: Yes Anticipated discharge: Home - Inpatient Certification Based on my medical assessment, after consideration of the patient's comorbidities, presenting symptoms, or acuity I expect that the services needed warrant INPATIENT care.: Yes I certify that my determination is in accordance with my understanding of Medicare's requirements for reasonable and necessary INPATIENT services [42 CFR 412.3e].: Yes Medical Necessity: Need For IV Fluids, Need for Pain Control, Need for IV Antibiotics, Need for Surgery
[2019-03-31] MEDS ORDERED: PIPERACILLIN SODIUM/TAZOBACTAM 3.375 GM in NORMAL SALINE 100 ML IV SCH (15:00)
--- NOTE | 2019-03-31 17:36 | PDOC CONSULTATION ---
Consultation Consult Date: 03/31/19 Attending physician:: ISIDORO MCDERMOTT Provider Consulted: ELEUTERIO PARADA History of Present Illness Admission Date/PCP: 03/31/19 14:27 DANAE RODRIGUEZ MD History of Present Illness: NGA ESTEVEZ is a 78 year old male with no significant past medical history except for hyperlipidemia who presented to the ED complaining of abdominal pain that woke him up from sleep last night. Patient states he was in good health until last night when he woke up from sleep with an abdominal pain that would not go away. States he took some medicines that was for indigestion but that did not help. Later his pain worsened so he ended up coming to the ER for evaluation. Patient states that he did not feel so good so he even tried to make himself vomit by sticking his finger down his mouth. States his pain was mostly in the upper mid abdomen but also a little bit on the right upper quadrant. States he felt a little bit diaphoretic but otherwise denied any fever/chills, chest pain, shortness of breath, nausea or vomiting. States that he has no history of any unusual food that he ate in the last 2 to 3 days, no recent travel, and no changes in his medications either. he denies any family history of cancer or stroke. He does admit to a history of left hip [id number] 6 weeks ago- without any complication as per patient. In the ED he was found to be tachycardic and he underwent CT abdomen pelvis- initially without contrast and later with IV contrast-showing mildly distended gallbladder, nonobstructive nephrolithiasis, left inguinal hernia and severe diverticulosis without any signs of diverticulitis. Patient was admitted under surgery for suspected acute cholecystitis and hospitalist were consulted for medical management of chronic diseases. Past Medical History Cardiac Medical History: Reports: Hyperlipidema Denies: Coronary Artery Disease, Myocardial Infarction, Hypertension Pulmonary Medical History: Denies: Asthma, Bronchitis, Chronic Obstructive Pulmonary Disease (COPD), Pneumonia Neurological Medical History: Denies: Seizures GI Medical History: Reports: Gastroesophageal Reflux Disease Musculoskeltal Medical History: Reports: Arthritis - Lower back, LEFT HIP. Hematology: Denies: Anemia Past Surgical History Past Surgical History: Reports: Orthopedic Surgery - lower back and neck Social History Information Source: Patient Smoking Status: Former Smoker Frequency of Alcohol Use: None Hx Recreational Drug Use: No - Advance Directive Resuscitation Status: Full Code Family History Family History: None, Reviewed & Not Pertinent Parental Family History Reviewed: Yes Children Family History Reviewed: No Sibling(s) Family History Reviewed.: Unknown Medication/Allergy Home Medications: Aspirin [Ecotrin 81 mg EC Tablet] 81 mg PO DAILY 03/31/19 Atorvastatin Calcium [Lipitor 20 mg Tablet] 20 mg PO QHS 03/31/19 Tamsulosin HCl [Flomax 0.4 mg Cap.sr] 0.4 mg PO Q12 03/31/19 Allergies/Adverse Reactions: bacitracin [From Neosporin ([id number])] Allergy (Verified 06/16/18 07:54) RASH latex Allergy (Verified 06/16/18 07:54) RASH neomycin [From Neosporin ([id number])] Allergy (Verified 06/16/18 07:54) RASH polymyxin B [From Neosporin ([id number])] Allergy (Verified 06/16/18 07:54) RASH PLASTIC BANDAID Allergy (Severe, Uncoded 06/16/18 07:54) RASH Review of Systems All systems: reviewed and no additional remarkable complaints except as stated Constitutional: ABSENT: chills, fever(s) Eyes: ABSENT: visual disturbances Respiratory: ABSENT: cough Gastrointestinal: PRESENT: abdominal pain, nausea. ABSENT: vomiting Physical Exam Vital Signs: Temp Pulse Resp BP Pulse Ox 97.7 F 71 15 120/72 95 03/31/19 16:01 03/31/19 02:13 03/31/19 16:01 03/31/19 16:01 03/31/19 16:01 Intake & Output 03/30/19 03/31/19 04/01/19 06:59 06:59 06:59 Intake Total 1000 1000 Balance 1000 1000 Weight 176 lb 2.389 oz General appearance: PRESENT: no acute distress Head exam: PRESENT: atraumatic, normocephalic Eye exam: PRESENT: EOMI. ABSENT: scleral icterus Ear exam: PRESENT: normal external ear exam Mouth exam: PRESENT: moist, tongue midline Respiratory exam: PRESENT: clear to auscultation abdulkadir, symmetrical Cardiovascular exam: PRESENT: +S1, +S2 GI/Abdominal exam: PRESENT: normal bowel sounds, soft, tenderness - Right upper quadrant tender to palpation, Arellano's positive Extremities exam: ABSENT: +2 edema Neurological exam: PRESENT: alert, awake, oriented to person, oriented to time, oriented to situation, CN II-XII grossly intact Skin exam: PRESENT: dry, warm Results Laboratory Results: 03/31/19 03:00 03/31/19 03:00 03/31/19 03/31/19 03/31/19 03:00 03:00 03:00 WBC 8.0 RBC 4.44 Hgb 14.3 Hct 41.7 MCV 94 MCH 32.2 MCHC 34.3 RDW 13.3 Plt Count 206 Seg Neutrophils % 87.9 H Lymphocytes % 7.2 L Monocytes % 3.9 Eosinophils % 0.7 Basophils % 0.3 Absolute Neutrophils 7.0 Absolute Lymphocytes 0.6 Absolute Monocytes 0.3 Absolute Eosinophils 0.1 Absolute Basophils 0.0 Sodium 141.5 Potassium 4.1 Chloride 106 Carbon Dioxide 29 Anion Gap 7 BUN 28 H Creatinine 0.84 Est GFR ( Amer) > 60 Est GFR (Non-Af Amer) > 60 Glucose 127 H Lactic Acid Calcium 9.6 Total Bilirubin 0.5 AST 22 ALT 21 Alkaline Phosphatase 127 H Total Protein 7.0 Albumin 4.4 Lipase 104.3 Urine Color YELLOW Urine Appearance CLEAR Urine pH 5.0 Ur Specific [place] 1.027 Urine Protein NEGATIVE Urine Glucose (UA) NEGATIVE Urine Ketones NEGATIVE Urine Blood NEGATIVE Urine Nitrite NEGATIVE Ur Leukocyte Esterase NEGATIVE Urine WBC (Auto) 4 Urine RBC (Auto) 2 03/31/19 13:50 WBC RBC Hgb Hct MCV MCH MCHC RDW Plt Count Seg Neutrophils % Lymphocytes % Monocytes % Eosinophils % Basophils % Absolute Neutrophils Absolute Lymphocytes Absolute Monocytes Absolute Eosinophils Absolute Basophils Sodium Potassium Chloride Carbon Dioxide Anion Gap BUN Creatinine Est GFR ( Amer) Est GFR (Non-Af Amer) Glucose Lactic Acid 1.5 Calcium Total Bilirubin AST ALT Alkaline Phosphatase Total Protein Albumin Lipase Urine Color Urine Appearance Urine pH Ur Specific [place] Urine Protein Urine Glucose (UA) Urine Ketones Urine Blood Urine Nitrite Ur Leukocyte Esterase Urine WBC (Auto) Urine RBC (Auto) 03/31/19 03:00 Troponin I < 0.012 Impressions: Chest X-Ray 03/31/19 07:53 IMPRESSION: No acute abnormality of the lungs. Stable scarring or atelectasis of the left lung base. Abdomen/Pelvis CT 03/31/19 09:12 IMPRESSION: 1. As on prior examination, there are no definite CT findings to explain acute abdominal pain. 2. Left inguinal hernia containing nonobstructed sigmoid colon. Severe sigmoid diverticulosis without evidence of acute diverticulitis. 3. Nonobstructive bilateral nephrolithiasis. 4. The gallbladder is mildly distended without evidence of calculus, wall thickening or biliary ductal dilation. 5. There is minimal aortic atherosclerosis without evidence of mesenteric vascular stenosis or occlusion. Findings discussed by telephone with Dr. Bruce, 1046 hours, 03/31/2019 Assessment and Plan - Diagnosis (1) Abdominal pain Qualifiers: Abdominal location: right upper quadrant Qualified Code(s): R10.11 - Right upper quadrant pain Is this a current diagnosis for this admission?: Yes (2) Acute cholecystitis Is this a current diagnosis for this admission?: Yes (3) Hypercholesterolemia Is this a current diagnosis for this admission?: Yes (4) Left inguinal hernia Is this a current diagnosis for this admission?: Yes (5) Tachycardia Is this a current diagnosis for this admission?: Yes - Time Time Spent with patient: 35 or more minutes Anticipated discharge: Home - Plan Summary Plan Summary: Abdominal pain-evaluated by surgery-spoke with Dr. Mcdermott about his pain. He believes this is acute cholecystitis and likely will undergo surgery tomorrow. n.p.o. after midnight-management per surgery. Recommend IV fluids overnight if he is to remain n.p.o. lactic acid is normal. His white count is also normal at this time. His preoperative risk is low according to the Gutierrez preoperative risk score Tachycardia-unclear etiology- although this can be explained by his pain -when I did examine him he told me that his pain is 1 out of 10-at that time his heart rate was still greater than 110. This is concerning since he had a left hip replacement about 6 weeks ago and most likely was sedentary after surgery. I am concerned for a PE with this tachycardia, although this is a low probability. He already had CT abdo with IV contrast today so we will not try to give him IV contrast again for a CTA chest to rule out PE. Instead we will check a d-dimer at this time- if d-dimer is positive then we will need to start on Heparin drip protocol for PE and get CTA chest in AM. His tachycardia can also be explained by acute cholecystitis and infection. Continue with IV Zosyn for now empirically. Hyperlipidemia-can continue on statin tonight. Thank you for consulting the hospitalist group at [facility]- it was a pleasure seeing your patient. Please feel free to call us if you have any further questions. We will continue to follow along with you in his care.
[2019-03-31] MEDS: PIPERACILLIN SODIUM/TAZOBACTAM 3.375 GM in NORMAL SALINE 100 ML IV SCH (22:31)
[2019-04-01] MEDS: PIPERACILLIN SODIUM/TAZOBACTAM 3.375 GM in NORMAL SALINE 100 ML IV SCH (06:32)
[2019-04-01] MEDS ORDERED: BUPIVACAINE HCL 0.25 % INJ/PF (2.5 MG/1 ML) 30 ML VIAL ONE (10:24)
[2019-04-01] MEDS ORDERED: PROPOFOL INJ 200 MG/20 ML VIAL IV ONE (10:27)
[2019-04-01] MEDS ORDERED: FENTANYL CITRATE INJ/PF 250 MCG/5 ML AMPULE ONE (10:27)
[2019-04-01] MEDS ORDERED: LIDOCAINE 2% INJ-PF (100 MG/5 ML) SYRINGE ONE (10:28)
[2019-04-01] MEDS ORDERED: METOPROLOL TARTRATE PF/INJ 5 MG/5 ML SDV IV ONE (11:01)
[2019-04-01] MEDS ORDERED: MEPERIDINE HCL/PF INJ 25 MG/1 ML DISP.SYRIN IV PRN (11:11)
[2019-04-01] MEDS ORDERED: MORPHINE SULFATE 10 MG/ML INJ IV PRN (11:11)
[2019-04-01] MEDS ORDERED: PROMETHAZINE HCL INJ 25 MG/1 ML VIAL IV PRN ×2 (11:11)
[2019-04-01] MEDS ORDERED: DIPHENHYDRAMINE HCL 50 MG/ML VIAL IV PRN (11:11)
[2019-04-01] MEDS ORDERED: FENTANYL CITRATE INJ/PF 100 MCG/2 ML AMPUL IV PRN ×3 (11:11)
[2019-04-01] MEDS: MEPERIDINE HCL/PF INJ 25 MG/1 ML DISP.SYRIN ONE ×2 (12:35→12:40)
--- NOTE | 2019-04-01 13:31 | PDOC PROGRESS REPORT ---
Subjective Progress Note for:: 04/01/19 Subjective:: This is a 78-year-old male admitted with acute cholecystitis. The patient still reports right upper quadrant pain. He denies nausea, vomiting, fevers, chills, chest pain, shortness of breath, dizziness, orthostasis, blurry vision, malaise, or fatigue. Reason For Visit: ACUTE CHOLECYSTITIS,SEPSIS Physical Exam Vital Signs: Temp Pulse Resp BP Pulse Ox 98.3 F 95 17 106/56 L 96 04/01/19 09:20 04/01/19 09:20 04/01/19 09:20 04/01/19 09:20 04/01/19 09:20 Intake & Output 03/31/19 04/01/19 04/02/19 06:59 06:59 06:59 Intake Total 1000 1100 3100 Output Total 2060 Balance 1000 1100 1040 Weight 79.9 kg 76.6 kg General appearance: PRESENT: no acute distress, cooperative Head exam: PRESENT: atraumatic, normocephalic Eye exam: PRESENT: EOMI, PERRLA. ABSENT: scleral icterus Mouth exam: PRESENT: moist, neck supple Neck exam: ABSENT: meningismus, tenderness, thyromegaly, tracheal deviation Respiratory exam: PRESENT: chest wall tenderness, unlabored. ABSENT: clear to auscultation abdulkadir, tachypnea, wheezes Cardiovascular exam: PRESENT: RRR Pulses: PRESENT: normal radial pulses GI/Abdominal exam: PRESENT: Arellano's sign, soft, tenderness Rectal exam: PRESENT: deferred Extremities exam: ABSENT: clubbing Musculoskeletal exam: PRESENT: ambulatory. ABSENT: deformity Neurological exam: PRESENT: alert, awake, oriented to person, oriented to place, oriented to time, oriented to situation Psychiatric exam: ABSENT: agitated, anxious, depressed Skin exam: ABSENT: cyanosis, erythema, jaundice Results Laboratory Results: 03/31/19 03:00 03/31/19 03:00 03/31/19 13:50 Lactic Acid 1.5 03/31/19 03:00 Troponin I < 0.012 Impressions: Chest X-Ray 03/31/19 07:53 IMPRESSION: No acute abnormality of the lungs. Stable scarring or atelectasis of the left lung base. Abdomen/Pelvis CT 03/31/19 09:12 IMPRESSION: 1. As on prior examination, there are no definite CT findings to explain acute abdominal pain. 2. Left inguinal hernia containing nonobstructed sigmoid colon. Severe sigmoid diverticulosis without evidence of acute diverticulitis. 3. Nonobstructive bilateral nephrolithiasis. 4. The gallbladder is mildly distended without evidence of calculus, wall thickening or biliary ductal dilation. 5. There is minimal aortic atherosclerosis without evidence of mesenteric vascular stenosis or occlusion. Findings discussed by telephone with Dr. Bruce, 1046 hours, 03/31/2019 Assessment & Plan - Diagnosis (1) Acute cholecystitis Is this a current diagnosis for this admission?: Yes - Plan Summary Plan Summary: This is a 78-year-old male with acute cholecystitis. I have recommended l aparoscopic appendectomy to treat his cholecystitis. The patient has agreed to this. Risks/benefits discussed, informed consent obtained, and all questions answered.
--- NOTE | 2019-04-01 13:36 | Operative Report ---
Nonrecallable Operative Report DATE OF SURGERY: 04/01/19 PREOPERATIVE DIAGNOSIS: Acute cholecystitis POSTOPERATIVE DIAGNOSIS: Acute gangrenous cholecystitis OPERATION: Laparoscopic cholecystectomy SURGEON: SAM SEHA ANESTHESIA: GA TISSUE REMOVED OR ALTERED: Gallbladder COMPLICATIONS: None apparent ESTIMATED BLOOD LOSS: 50 cc PROCEDURE: Drains/implants: None. Procedure in detail: After informed consent was obtained, the patient was brought into the operating room and laid in the supine position. The area of the abdomen was prepped and draped in a normal sterile fashion. An infraumbilical incision was created with a 15 blade scalpel. This was deepened through the use of sharp and blunt means. The linea alba fascia was incised sharply, the abdomen was entered sharply. The balloon trocar was inserted, and pneumoperitoneum was achieved. A subxiphoid 5 mm port was placed under direct laparoscopic visualization. 2 more 5 mm ports were placed in the right upper quadrant in similar fashion. Atraumatic graspers were placed through the 5 mm ports. The gallbladder was identified. It was tense, distended, and the wall appeared to be necrotic. A cyst aspiration needle was used to aspirate approximately 70 cc of thick, dark bile from the gallbladder lumen. Once this was completed, the gallbladder was retracted cephalad and laterally. Dissection was begun in the triangle of [place]. There was a dense inflammatory reaction around the gallbladder. Very carefully the omentum and duodenum were freed from the gallbladder using sharp and blunt dissection. Next attention was turned to the triangle of [place]. The cystic duct and cystic artery were fully visualized and skeletonized, seeing the liver through the triangle. Once the critical view of safety was obtained, the cystic duct and cystic artery were clipped and cut with laparoscopic instruments. The gallbladder was then removed from the liver using Bovie electrocautery. The gallbladder was placed into an Endo Catch bag and pulled out through the umbilicus. The camera was reinserted, and the hilum was inspected. The hilum was found to be free of any leakage of blood or bile. Next, the abdomen was copiously irrigated and suctioned until the effluent was clear. Next the 5 mm trochars were removed under direct laparoscopic visualization. The infraumbilical trocar was removed, and pneumoperitoneum was relieved. The infraumbilical fascia was then closed using 0 Vicryl suture in [id number] fashion. The overlying skin was closed using 4-0 Vicryl Rapide suture in subcuticular fashion. Dressings were placed, and the procedure was concluded. All sponge, instrument, and needle counts were correct x2. Condition: Stable.
[2019-04-01] MEDS ORDERED: HYDROCODONE/ACETAMINOPHEN 10-325 MG TABLET PO PRN (13:45)
[2019-04-01] MEDS: KETOROLAC TROMETHAMINE INJ/PF 30 MG/1 ML SDV IV SCH ×2 (14:28→21:36)
[2019-04-01] MEDS ORDERED: PHENYLEPHRINE HCL INJ/PF 10 MG/1 ML SDV ONE (14:51)
[2019-04-01] MEDS ORDERED: SUCCINYLCHOLINE CHLORIDE INJ 200 MG/10 ML VIAL ONE (14:51)
[2019-04-01] MEDS ORDERED: NEOSTIGMINE METHYLSULFATE 10 MG/10 ML VIAL ONE (14:51)
[2019-04-01] MEDS ORDERED: GLYCOPYRROLATE 1 MG/5 ML VIAL ONE (14:51)
[2019-04-01] MEDS ORDERED: ONDANSETRON HCL INJ/PF 4 MG/2 ML SDV ONE (14:51)
[2019-04-01] MEDS ORDERED: ROCURONIUM BROMIDE INJ 50 MG/5 ML VIAL IV ONE (14:51)
--- NOTE | 2019-04-01 16:56 | PDOC PROGRESS REPORT ---
Subjective Progress Note for:: 04/01/19 Subjective:: saw patient at bedside. his sister is in the room also. He states that he feels good and has no abdominal pain at this time. Sister states that surgeon came out of the OR and told him that everything went well but the gallbladder was "". Patient has no complaints at this time and he is eager to start eating some food as he has not eaten any good food in 2 days. Reason For Visit: ACUTE CHOLECYSTITIS,SEPSIS Physical Exam Vital Signs: Temp Pulse Resp BP Pulse Ox 97.5 F 70 16 102/50 L 98 04/01/19 13:10 04/01/19 13:10 04/01/19 13:10 04/01/19 13:10 04/01/19 13:10 Intake & Output 03/31/19 04/01/19 04/02/19 06:59 06:59 06:59 Intake Total 1000 1100 4000 Output Total 2110 Balance 1000 1100 1890 Weight 176 lb 2.389 oz 168 lb 13.985 oz General appearance: PRESENT: no acute distress Head exam: PRESENT: atraumatic, normocephalic Eye exam: PRESENT: EOMI. ABSENT: scleral icterus Ear exam: PRESENT: normal external ear exam Mouth exam: PRESENT: moist, tongue midline Respiratory exam: PRESENT: clear to auscultation abdulkadir, symmetrical Cardiovascular exam: PRESENT: +S1, +S2 GI/Abdominal exam: PRESENT: hypoactive bowel sounds, soft, tenderness - Surgical site noted with minimal tender to palpation. Extremities exam: ABSENT: pedal edema Neurological exam: PRESENT: alert, awake, oriented to person, oriented to place, oriented to time, CN II-XII grossly intact Results Laboratory Results: 03/31/19 03:00 03/31/19 03:00 03/31/19 13:50 Lactic Acid 1.5 03/31/19 03:00 Troponin I < 0.012 Impressions: Chest X-Ray 03/31/19 07:53 IMPRESSION: No acute abnormality of the lungs. Stable scarring or atelectasis of the left lung base. Abdomen/Pelvis CT 03/31/19 09:12 IMPRESSION: 1. As on prior examination, there are no definite CT findings to explain acute abdominal pain. 2. Left inguinal hernia containing nonobstructed sigmoid colon. Severe sigmoid diverticulosis without evidence of acute diverticulitis. 3. Nonobstructive bilateral nephrolithiasis. 4. The gallbladder is mildly distended without evidence of calculus, wall thickening or biliary ductal dilation. 5. There is minimal aortic atherosclerosis without evidence of mesenteric vascular stenosis or occlusion. Findings discussed by telephone with Dr. Bruce, 1046 hours, 03/31/2019 Assessment and Plan - Diagnosis (1) Abdominal pain Qualifiers: Abdominal location: right upper quadrant Qualified Code(s): R10.11 - Right upper quadrant pain Is this a current diagnosis for this admission?: Yes (2) Acute cholecystitis Is this a current diagnosis for this admission?: Yes (3) Hypercholesterolemia Is this a current diagnosis for this admission?: Yes (4) Left inguinal hernia Is this a current diagnosis for this admission?: Yes (5) Tachycardia Is this a current diagnosis for this admission?: Yes - Plan Summary Plan Summary: Acute cholecystitis-postop day #0-status post lap mindy by Dr. Finley this morning. Patient is doing well. His diet has been resumed and he is very happy. Pain control as needed. Management per Ortho. Tachycardia-yesterday I was concerned about his tachycardia even when he was not having too much pain. But it seems that it was all due to his acute cholecystitis. D-dimer was very minimally elevated but I doubt that this is related to a PE. His vital signs have normalized at this time. We will continue to monitor. Hyperlipidemia-restart on statins tonight BPH-Flomax still on hold.
[2019-04-01] MEDS: FAMOTIDINE 20 MG TABLET PO SCH (21:36)
[2019-04-01] MEDS ORDERED: ATORVASTATIN CALCIUM 20 MG TABLET PO SCH (22:00)
[2019-04-02] MEDS ORDERED: BENZOCAINE/MENTHOL SORE THROAT LOZENGE BUCCAL PRN (01:11)
[2019-04-02 04:42] LABS: ABSOLUTE LYMPHOCYTES (AUTO) 1.1 10^3/uL (0.5-4.7); ABSOLUTE MONOCYTES (AUTO) 0.8 10^3/uL (0.1-1.4); BASOPHILS % (AUTO) 0.2 % (0-2); EOSINOPHILS % (AUTO) 0.3 % (0-6); HEMATOCRIT 34.7 % (37.9-51.0); LYMPHOCYTES % (AUTO) 14.2 % (13-45); MEAN CORPUSCULAR HEMOGLOBIN 32.6 pg (27.0-33.4); MEAN CORPUSCULAR HGB CONC 34.3 g/dL (32.0-36.0); MEAN CORPUSCULAR VOLUME 95 fl (80-97); MONOCYTES % (AUTO) 10.6 % (3-13); PLATELET COUNT 159 10^3/uL (150-450); RED BLOOD COUNT 3.66 10^6/uL (4.35-5.55); RED CELL DISTRIBUTION WIDTH 13.1 % (11.5-14.0); SEGMENTED NEUTROPHILS % (AUTO) 74.7 % (42-78); TOTAL CELLS COUNTED % (AUTO) 100 %
[2019-04-02 04:44] LABS: HEMOGLOBIN 11.9 g/dL (13.5-17.0)
[2019-04-02 04:59] LABS: ANION GAP 6 (5-19); BLOOD UREA NITROGEN 26 mg/dL (7-20); CALCIUM 8.3 mg/dL (8.4-10.2); CARBON DIOXIDE 26 mmol/L (22-30); CHLORIDE 107 mmol/L (98-107); GLUCOSE 83 mg/dL (75-110); SODIUM 138.5 mmol/L (137-145)
[2019-04-02] MEDS: KETOROLAC TROMETHAMINE INJ/PF 30 MG/1 ML SDV IV SCH (05:51)
--- NOTE | 2019-04-02 08:51 | PDOC DISCHARGE SUMMARY ---
General - Admit/Disc Date/PCP Admission Date/Primary Care Provider: 03/31/19 14:27 DANAE RODRIGUEZ MD Discharge Date: 04/02/19 - Discharge Diagnosis (1) Acute cholecystitis Is this a current diagnosis for this admission?: Yes - Additional Information Resuscitation Status: Full Code Discharge Diet: As Tolerated Discharge Activity: No Lifting Over 10 Pounds Home Medications: Aspirin [Ecotrin 81 mg EC Tablet] 81 mg PO DAILY 03/31/19 Atorvastatin Calcium [Lipitor 20 mg Tablet] 20 mg PO QHS 03/31/19 Tamsulosin HCl [Flomax 0.4 mg Cap.sr] 0.4 mg PO Q12 03/31/19 History of Present Illness History of Present Illness: NGA ESTEVEZ is a 78 year old male admitted with acute cholecystitis. The patient was taken to the operating room where laparoscopic cholecystectomy was performed. The patient was taken to the floor in stable condition. Hospital Course Hospital Course: The patient was taken to the operating room where acute, gangrenous cholecystitis was identified. His surgery was completed laparoscopically. He was taken to the floor in stable condition. On the floor, the patient began ambulating, tolerating a diet, his pain was controlled with oral pain medications, and by 04/02/2019 it was felt that he had reached maximal hospital benefit. At this time, the patient is medically fit for discharge. Physical Exam Vital Signs: Temp Pulse Resp BP Pulse Ox 98.4 F 102 H 16 144/78 H 90 L 04/02/19 08:00 04/02/19 08:00 04/02/19 08:00 04/02/19 08:00 04/02/19 08:00 Intake & Output 04/01/19 04/02/19 04/03/19 06:59 06:59 06:59 Intake Total 1100 5240 Output Total 2110 Balance 1100 3130 Weight 76.6 kg 76.6 kg Results Laboratory Results: 04/02/19 03:45 04/02/19 03:45 04/02/19 04/02/19 03:45 03:45 WBC 8.0 RBC 3.66 L Hgb 11.9 L D Hct 34.7 L MCV 95 MCH 32.6 MCHC 34.3 RDW 13.1 Plt Count 159 Seg Neutrophils % 74.7 Lymphocytes % 14.2 Monocytes % 10.6 Eosinophils % 0.3 Basophils % 0.2 Absolute Neutrophils 6.0 Absolute Lymphocytes 1.1 Absolute Monocytes 0.8 Absolute Eosinophils 0.0 Absolute Basophils 0.0 Sodium 138.5 Potassium 4.0 Chloride 107 Carbon Dioxide 26 Anion Gap 6 BUN 26 H Creatinine 0.80 Est GFR ( Amer) > 60 Est GFR (Non-Af Amer) > 60 Glucose 83 Calcium 8.3 L Magnesium 2.1 03/31/19 03:00 Troponin I < 0.012 Impressions: Chest X-Ray 03/31/19 07:53 IMPRESSION: No acute abnormality of the lungs. Stable scarring or atelectasis of the left lung base. Abdomen/Pelvis CT 03/31/19 09:12 IMPRESSION: 1. As on prior examination, there are no definite CT findings to explain acute abdominal pain. 2. Left inguinal hernia containing nonobstructed sigmoid colon. Severe sigmoid diverticulosis without evidence of acute diverticulitis. 3. Nonobstructive bilateral nephrolithiasis. 4. The gallbladder is mildly distended without evidence of calculus, wall thickening or biliary ductal dilation. 5. There is minimal aortic atherosclerosis without evidence of mesenteric vascular stenosis or occlusion. Findings discussed by telephone with Dr. Bruce, 1046 hours, 03/31/2019 Qualifiers - * PATIENT BEING DISCHARGED WITH ANY OF THE FOLLOWING DIAGNOSIS: No Acute Heart Failure - Is this a Heart Failure Patient?: No Plan Discharge Plan: Discharge home. Diet as tolerated. Activity: No lifting greater than 10 pounds. Follow-up with me in 7 to 10 days. [place] 10/3 2 5 mg p.o. every 6 hours as needed for pain. Bbjl-ehw-wkaicwv ibuprofen for supplemental pain control. Okay to shower tomorrow. No tub baths or swimming pools x2 weeks. Time Spent: Less than 30 Minutes
[2019-04-02] MEDS: FAMOTIDINE 20 MG TABLET PO SCH (09:10)
[2019-04-02 10:37] VITALS: BP 128/64
== END 2019-04-02 10:45 | disposition home or self-care (01) | DRG 419 ==
LOC: ER 02:06 → EH 14:27 → 4N 17:39
PROVIDERS: ADMIT Surgery; ATTEND Surgery
PROC: 0FT44ZZ Resection of Gallbladder, Percutaneous Endoscopic Approach (ICD-10-PCS; principal; 2019-04-01 10:45)
DX: K81.0 Acute cholecystitis (principal); E78.5 Hyperlipidemia, unspecified; K21.9 Gastro-esophageal reflux disease without esophagitis; E78.00 Pure hypercholesterolemia, unspecified; K40.90 Unilateral inguinal hernia, without obstruction or gangrene, not specified as recurrent; E86.0 Dehydration; H91.90 Unspecified hearing loss, unspecified ear; K82.A1 Gangrene of gallbladder in cholecystitis; Z87.891 Personal history of nicotine dependence; Z79.899 Other long term (current) drug therapy; Z88.1 Allergy status to other antibiotic agents; Z88.8 Allergy status to other drugs, medicaments and biological substances; Z91.040 Latex allergy status
CPT/HCPCS: 36415; 71045; 74176; 74177; 790; 80048; 80053; 81001; 83605; 83690; 83735; 84484; 85025; 85379; 87040; 87086; 88304; 93005; 93010; J0330; J1200; J1885; J2001; J2175; J2270; J2370; J2405; J2543; J2704; J2710; J2930; J3010; J3490; J7030; J7050; S0028

== ENCOUNTER 2019-09-01 05:37 | Day surgery (SDC) | payer MEDICARE ==
[~2019-09-01 05:37] MED LIST changes: +ACETAMINOPHEN 325 MG TABLET PO PRN; -CEFAZOLIN 1 GM/D5W RTU 1 GM/50 ML RTUPB IV PRN; +CEFAZOLIN SODIUM 2 GM in DEXTROSE 5%-WATER 100 ML IV PRN; +IBUPROFEN 800 MG in NORMAL SALINE 250 ML IV PRN; -LACTATED RINGERS 1000 ML IV PRN; -LIDOCAINE 0.5% INJ-PF (5 MG/ML) 50 ML SDV SUBCUT PRN; -LIDOCAINE 1%/EPINEPHRINE INJ 20 ML VIAL ONE; -POVIDONE-IODINE 5% OPH PREP SOLN 30 ML ONE; +PREGABALIN 50 MG CAPSULE PO PRN; -SODIUM BICARBONATE 8.4% INJ 50 MEQ/50 ML DISP.SYRIN ONE
[2019-09-01] MEDS ORDERED: ACETAMINOPHEN 325 MG TABLET ONE (06:13)
[2019-09-01] MEDS ORDERED: PREGABALIN 50 MG CAPSULE ONE (06:13)
[2019-09-01] MEDS ORDERED: SUGAMMADEX SODIUM 200 MG/2 ML SDV IV ONE (06:20)
[2019-09-01] MEDS ORDERED: DEXAMETHASONE SOD PHOSPHATE INJ 4 MG/1 ML VIAL ONE (06:20)
[2019-09-01] MEDS ORDERED: MIDAZOLAM 2 MG/2 ML INJ ONE (06:20)
[2019-09-01] MEDS ORDERED: PROPOFOL INJ 200 MG/20 ML VIAL IV ONE (06:20)
[2019-09-01] MEDS ORDERED: FENTANYL CITRATE INJ/PF 100 MCG/2 ML AMPUL ONE ×2 (06:20→10:00)
[2019-09-01] MEDS ORDERED: ONDANSETRON HCL INJ/PF 4 MG/2 ML SDV ONE ×2 (06:20→10:05)
[2019-09-01] MEDS ORDERED: FENTANYL CITRATE INJ/PF 250 MCG/5 ML AMPULE ONE (06:20)
[2019-09-01] MEDS ORDERED: LIDOCAINE 0.5% INJ-PF (5 MG/ML) 50 ML SDV ONE (06:23)
[2019-09-01 06:32] LABS: HEMATOCRIT 44.5 % (37.9-51.0); HEMOGLOBIN 15.3 g/dL (13.5-17.0); MEAN CORPUSCULAR HEMOGLOBIN 31.9 pg (27.0-33.4); MEAN CORPUSCULAR HGB CONC 34.5 g/dL (32.0-36.0); MEAN CORPUSCULAR VOLUME 93 fl (80-97); PLATELET COUNT 202 10^3/uL (150-450); RED BLOOD COUNT 4.81 10^6/uL (4.35-5.55); RED CELL DISTRIBUTION WIDTH 13.2 % (11.5-14.0)
--- NOTE | 2019-09-01 06:46 | RADIOLOGY REPORT (SQ) ---
EXAM DESCRIPTION: XR CHEST 1 VIEW COMPLETED DATE/TME: 09/01/2019 00:00 CLINICAL HISTORY: 78 years Male, pre-op. BED 3 COMPARISON: 09/13/14 NUMBER OF VIEWS/TECHNIQUE: 1/AP FINDINGS: Adequate lung volume, small patchy opacity of the left lower lobe, normal cardiac silhouette, and intact bony thorax. IMPRESSION: Small left lower lobar pneumonia/atelectasis. Recommend CR/CT surveillance including at 7-12 weeks following initiation of any clinically warranted therapy.
[2019-09-01 06:52] LABS: ANION GAP 9 (5-19); BLOOD UREA NITROGEN 17 mg/dL (7-20); CALCIUM 9.6 mg/dL (8.4-10.2); CARBON DIOXIDE 28 mmol/L (22-30); CHLORIDE 106 mmol/L (98-107); GLUCOSE 101 mg/dL (75-110); POTASSIUM 3.9 mmol/L (3.6-5.0)
[2019-09-01] MEDS ORDERED: BUPIVACAINE HCL 0.25 % INJ/PF (2.5 MG/1 ML) 30 ML VIAL ONE (07:12)
[2019-09-01] MEDS ORDERED: PROMETHAZINE HCL INJ 25 MG/1 ML VIAL IV PRN ×2 (08:17)
[2019-09-01] MEDS ORDERED: MORPHINE SULFATE 10 MG/ML INJ IV PRN (08:17)
[2019-09-01] MEDS ORDERED: FENTANYL CITRATE INJ/PF 100 MCG/2 ML AMPUL IV PRN ×3 (08:17)
[2019-09-01] MEDS ORDERED: MEPERIDINE HCL/PF INJ 25 MG/1 ML DISP.SYRIN IV PRN (08:17)
[2019-09-01] MEDS ORDERED: DIPHENHYDRAMINE HCL 50 MG/ML VIAL IV PRN (08:17)
[2019-09-01] MEDS ORDERED: ONDANSETRON HCL INJ/PF 4 MG/2 ML SDV IV PRN (08:17)
--- NOTE | 2019-09-01 09:37 | Discharge Summary ---
Discharge Summary (SDC) - Discharge Final Diagnosis: Bilateral inguinal hernias Date of Surgery: 09/01/19 Discharge Date: 09/01/19 Condition: Stable Treatment or Instructions: Discharge home. Diet as tolerated. Activity: Nonstrenuous, no lifting greater than 10 pounds x 4 weeks. Follow-up with [facility] in 7 to 10 days. [place] 10/325 mg p.o. every 6 hours as needed for pain. Wear supportive underwear. Okay to shower in 48 hours. Referrals: DANAE RODRIGUEZ MD [Primary Care Provider] - Discharge Diet: As Tolerated Respiratory Treatments at Home: Deep Breathing/Coughing, Incentive Spirometer Discharge Activity: Balance Activity w/Rest, No Lifting Over 10 Pounds, No Lifting/Push/Pulling Home Care Assistance: None Needed Report the Following to Your Physician Immediately: Shortness of Breath, Nausea, Vomiting, Increase in Pain, Fever over 101 Degrees, Unusual Bleeding, Redness
--- NOTE | 2019-09-01 09:44 | Operative Report ---
Nonrecallable Operative Report DATE OF SURGERY: 09/01/19 PREOPERATIVE DIAGNOSIS: 1. Large left inguinal scrotal hernia, indirect. 2. Small indirect right inguinal hernia. POSTOPERATIVE DIAGNOSIS: Same as above OPERATION: Robot-assisted laparoscopic bilateral inguinal hernia repair with mesh. SURGEON: SAM MISHRA HISTOLOGY TEACHER: PAUL DELGADO ANESTHESIA: GA TISSUE REMOVED OR ALTERED: None COMPLICATIONS: None apparent. ESTIMATED BLOOD LOSS: Minimal PROCEDURE: Drains/implants: Large left and right 3 DMax inguinal hernia mesh. Procedure in detail: After informed consent was obtained, the patient was brought to the operating room and laid in the supine position. The area of the abdomen was prepped and draped in a normal sterile fashion. A supraumbilical incision was created with a 15 blade scalpel. Dissection was carried through the subcutaneous tissue using sharp and blunt dissection. The linea alba fascia was incised sharply, the abdomen was entered sharply. The balloon trocar was inserted, and pneumoperitoneum was achieved. 2 right and left 8 mm robotic trochars were placed in the lateral abdominal wall under direct laparoscopic visualization. The robot was then brought over the patient and docked appropriately. I then assumed my position at the surgeon's console. Attention was turned to the left groin. An incision was created in the peritoneum 3 cm superior to the large left inguinal hernia defect. Using blunt dissection, sharp dissection, and electrocautery, the hernia sac was reduced back into the abdomen. The sigmoid colon was inspected after reduction, to ensure that no damage had occurred to the bowel wall. No hematomas, serosal tears, or other damage could be identified to the sigmoid colon. The dissection of the sac was undertaken using great care, so as not to injure the cord structures. Once the hernia sac was reduced, a left-sided 3 DMax large inguinal hernia mesh was inserted into the preperitoneal space. It was sutured medially and superiorly using 2-0 Vicryl suture. Next, the peritoneum was closed using 20V lock suture in simple running fashion. Once this was completed, attention was turned to the right side. In similar fashion, the peritoneum was scored 3 cm superior to the inguinal hernia defect. A preperitoneal dissection was undertaken using sharp dissection, blunt dissection, and electrocautery. A lipoma of the cord was identified in the right inguinal position. This was reduced. The cord structur es were skeletonized, taking great care not to injure the cord structures. Next, a right-sided large 3 DMax inguinal hernia mesh was placed into the preperitoneal space. It was sutured medially and superiorly. Once this was completed, the peritoneum was closed using 2 oh VueLock suture in simple running fashion. Once this was completed, the repairs were inspected, and found to be in good order. The robot was then undocked, and I scrubbed back into the case. The trochars were then removed, pneumoperitoneum was relieved. The supraumbilical fascia was closed using 0 Vicryl suture in [id number] fashion. The overlying skin was closed using 4-0 Vicryl Rapide suture in subcuticular fashion. Dressings were placed, and the procedure was concluded. All sponge, instrument, and needle counts were correct x2. Condition: Stable.
[2019-09-01] MEDS ORDERED: HYDROCODONE/ACETAMINOPHEN 10-325 MG TABLET PO PRN (10:22)
[2019-09-01] MEDS ORDERED: HYDROCODONE/ACETAMINOPHEN 10-325 MG TABLET ONE (10:55)
[2019-09-01] MEDS ORDERED: IBUPROFEN 800 MG TABLET PO SCH (12:00)
[2019-09-01 12:38] VITALS: BP 128/94
--- NOTE | 2019-09-01 13:10 | EKG REPORT ---
SEVERITY:- ABNORMAL ECG - SINUS RHYTHM PROBABLE LEFT ATRIAL ABNORMALITY LEFT AXIS DEVIATION ABNRM R PROG, CONSIDER ASMI OR LEAD PLACEMENT : Confirmed by: Edith Vergara MD 01-Sep-2019 13:09:48
[2019-09-01] MEDS ORDERED: ROCURONIUM BROMIDE INJ 50 MG/5 ML VIAL IV ONE (13:51)
[2019-09-01] MEDS ORDERED: SUCCINYLCHOLINE CHLORIDE INJ 200 MG/10 ML VIAL ONE (13:51)
[2019-09-01] MEDS ORDERED: PHENYLEPHRINE HCL INJ/PF 10 MG/1 ML SDV ONE (13:51)
== END 2019-09-01 11:50 | disposition home or self-care (01) ==
LOC: OROUT 05:37
PROVIDERS: ATTEND Surgery
DX: K40.20 Bilateral inguinal hernia, without obstruction or gangrene, not specified as recurrent (principal); E78.00 Pure hypercholesterolemia, unspecified; Z79.899 Other long term (current) drug therapy
CPT/HCPCS: 49650; S2900; 36415; 71045; 80048; 840; 85027; 86850; 86900; 86901; 93005; 93010; C1781; J0330; J0690; J1100; J1741; J2250; J2370; J2405; J2704; J3010; J3490; J7050; J7060

== ENCOUNTER 2020-09-10 07:36 | Day surgery (SDC) | payer MEDICARE ==
[~2020-09-10 07:36] MED LIST changes: -ACETAMINOPHEN 325 MG TABLET PO PRN; +BUPIVACAINE HCL 0.75% INJ/PF (7.5 MG/1 ML) 10 ML SDV OD PRN; -CEFAZOLIN SODIUM 2 GM in DEXTROSE 5%-WATER 100 ML IV PRN; -IBUPROFEN 800 MG in NORMAL SALINE 250 ML IV PRN; +KETOROLAC TROMETHAMINE 0.45% 4 DROP/0.4 ML DROPERETTE OD PRN; +LIDOCAINE 4% INJ/PF (40 MG/ML) 5 ML AMPUL OD PRN; -PREGABALIN 50 MG CAPSULE PO PRN
[2020-09-10] MEDS ORDERED: LIDOCAINE 1%/PHENYLEPHRINE 1.5% 1 ML VIAL ONE (07:49)
[2020-09-10] MEDS ORDERED: CHONDR SU A NA/HYALUR INTRAOC KIT (SURGICARE) ONE (07:49)
[2020-09-10] MEDS ORDERED: EPINEPHRINE INJ/PF 1 MG/1 ML AMPULE ONE (07:49)
[2020-09-10] MEDS: TETRACAINE HCL 0.5% OPH SOLN 4 ML OD PRN ×3 (08:00→08:22)
[2020-09-10] MEDS: BESIFLOXACIN HCL 0.6% OPH SUSP 5 ML BOTTLE OD PRN ×4 (08:00→08:45)
[2020-09-10] MEDS: TROPICAMIDE 1% OPH SOLN 15 ML OD PRN ×3 (08:00→08:15)
[2020-09-10] MEDS: CYCLOPENTOLATE 0.2%/PHENYLEPHRINE 1% OPH SOLN 2 ML OD PRN ×3 (08:00→08:15)
[2020-09-10] MEDS ORDERED: ONDANSETRON HCL INJ/PF 4 MG/2 ML SDV ONE (08:03)
[2020-09-10] MEDS ORDERED: MIDAZOLAM 2 MG/2 ML INJ ONE (08:03)
[2020-09-10] MEDS ORDERED: FENTANYL CITRATE INJ/PF 100 MCG/2 ML AMPUL ONE (08:03)
[2020-09-10] MEDS: PREDNISOLONE ACETATE 1% OPH SUSP 5 ML OD PRN ×2 (08:45)
[2020-09-10] MEDS: DORZOLAMIDE HCL 2%/TIMOLOL MALEAT 0.5% OPH SOLN 10 ML OD PRN ×2 (08:45)
--- NOTE | 2020-09-10 08:57 | Operative Report ---
Operative Report-[facility] Operative Report: DATE OF SURGERY: 09/10/2020 PREOPERATIVE DIAGNOSIS: CATARACT, RIGHT EYE. POSTOPERATIVE DIAGNOSIS: CATARACT, RIGHT EYE. PROCEDURE PERFORMED: PHACOEMULSIFICATION WITH POSTERIOR CHAMBER INTRAOCULAR LENS, RIGHT EYE. Intraocular Lens Model : DC hope 19.5 Total Phaco Time: 8.75 CDE SURGEON: AARON ASHFORD MD ANESTHESIA: TOPICAL WITH MAC. INDICATIONS FOR SURGERY: Difficulty reading words on TV. PROCEDURE: The patient was brought to the Operating Room and placed on the operative table. Following tetracaine drops, topical anesthesia was administered. This consisted of instrument wipe pledgets soaked in a solution of 4% Xylocaine mixed with 0.75% Marcaine in a 1:2 ratio. A 2 x 1 cm pledget was placed in the superior fornix. A 1 x 1 cm pledget was placed in the inferior fornix. The eye was patched shut for 5 minutes. The patch was removed. The eye was sterilely prepped and draped in the usual manner. Lid speculum was placed in the eye. The pledgets were removed. 4-0 black silk sutures were placed around the superior and the inferior rectus muscles to be used as traction. A conjunctival peritomy was made at the 10 o'clock position. Hemostasis was obtained with bipolar cautery. A posterior limbal groove was created using a crescent knife and dissected anteriorly towards the cornea. A sharp point blade was used to create a paracentesis site at the 2 o'clock position. 0.2 cc non preserved Lidocaine was injected into the anterior chamber. A 2.4 mm keratome was used to enter the anterior chamber through the groove. Viscoelastic was injected into the anterior chamber. An anterior capsulotomy was performed using Utrata forceps in a capsulorrhexis fashion. Hydrodissection and hydrodelineation were performed. Phacoemulsification was performed in [id number] technique. Following this, the I/A unit was used to remove residual cortex. Viscoelastic was injected into the capsular bag. The Intraocular lens was placed in the capsular bag. The I/A unit was used to remove residual viscoelastic. The wound was seen to be watertight under high and low pressure, and no sutures were placed. The intraocular lens was well centered. The pressure was adjusted in the eye to normal pressure. The 4-0 black silk sutures and lid speculum were removed. The eye was shielded after Besivance. prednisolone, and Cosopt drops were placed. The patient tolerated the procedure well and was sent to the Recovery Room in good condition.
== END 2020-09-10 09:18 | disposition home or self-care (01) ==
LOC: SC 07:36
PROVIDERS: ATTEND Ophthalmology
DX: H25.811 Combined forms of age-related cataract, right eye (principal); H47.013 Ischemic optic neuropathy, bilateral; H40.053 Ocular hypertension, bilateral; H04.203 Unspecified epiphora, bilateral; H57.03 Miosis; Z79.82 Long term (current) use of aspirin; E78.00 Pure hypercholesterolemia, unspecified
CPT/HCPCS: 66984; V2632; J2250; J3490 ×4; A9270; J0171; J2405; 142; J3010

== ENCOUNTER 2020-10-01 06:48 | Day surgery (SDC) | payer MEDICARE ==
[~2020-10-01 06:48] MED LIST changes: -BUPIVACAINE HCL 0.75% INJ/PF (7.5 MG/1 ML) 10 ML SDV OD PRN; +BUPIVACAINE HCL 0.75% INJ/PF (7.5 MG/1 ML) 10 ML SDV OS PRN; -KETOROLAC TROMETHAMINE 0.45% 4 DROP/0.4 ML DROPERETTE OD PRN; +KETOROLAC TROMETHAMINE 0.45% 4 DROP/0.4 ML DROPERETTE OS PRN; -LIDOCAINE 4% INJ/PF (40 MG/ML) 5 ML AMPUL OD PRN; +LIDOCAINE 4% INJ/PF (40 MG/ML) 5 ML AMPUL OS PRN
[2020-10-01] MEDS ORDERED: LIDOCAINE 1%/PHENYLEPHRINE 1.5% 1 ML VIAL ONE (06:56)
[2020-10-01] MEDS ORDERED: EPINEPHRINE INJ/PF 1 MG/1 ML AMPULE ONE (06:56)
[2020-10-01] MEDS ORDERED: CHONDR SU A NA/HYALUR INTRAOC KIT (SURGICARE) ONE (06:56)
[2020-10-01] MEDS: TETRACAINE HCL 0.5% OPH SOLN 4 ML OS PRN ×2 (07:18→07:55)
[2020-10-01] MEDS: TROPICAMIDE 1% OPH SOLN 15 ML OS PRN ×3 (07:18→07:42)
[2020-10-01] MEDS: BESIFLOXACIN HCL 0.6% OPH SUSP 5 ML BOTTLE OS PRN ×5 (07:18→08:25)
[2020-10-01] MEDS: CYCLOPENTOLATE 0.2%/PHENYLEPHRINE 1% OPH SOLN 2 ML OS PRN ×3 (07:18→07:42)
[2020-10-01] MEDS ORDERED: MIDAZOLAM 2 MG/2 ML INJ ONE (07:44)
[2020-10-01] MEDS: DORZOLAMIDE HCL 2%/TIMOLOL MALEAT 0.5% OPH SOLN 10 ML OS PRN ×2 (08:25)
--- NOTE | 2020-10-01 12:36 | Operative Report ---
Operative Report-[facility] Operative Report: DATE OF SURGERY: October 01, 2020 PREOPERATIVE DIAGNOSIS: CATARACT, LEFT EYE. POSTOPERATIVE DIAGNOSIS: CATARACT, LEFT EYE. PROCEDURE PERFORMED: PHACOEMULSIFICATION WITH POSTERIOR CHAMBER INTRAOCULAR LENS, LEFT EYE. Intraocular Lens Model : DC ohpe 20.0 Total Phaco Time: 16.45 CDE SURGEON: AARON ASHFORD MD ANESTHESIA: TOPICAL WITH MAC. INDICATIONS FOR SURGERY: Difficultly driving at night and reading small print PROCEDURE: The patient was brought to the Operating Room and placed on the operative table. Following tetracaine drops, topical anesthesia was administered. This consisted of instrument wipe pledgets soaked in a solution of 4% Xylocaine mixed with 0.75% Marcaine in a 1:2 ratio. A 2 x 1 cm pledget was placed in the superior fornix. A 1 x 1 cm pledget was placed in the inferior fornix. The eye was patched shut for 5 minutes. The patch was removed. The eye was sterilely prepped and draped in the usual manner. Lid speculum was placed in the eye. The pledgets were removed. 4-0 black silk sutures were placed around the superior and the inferior rectus muscles to be used as traction. A conjunctival peritomy was made at the 10 o'clock position. Hemostasis was obtained with bipolar cautery. A posterior limbal groove was created using a crescent knife and dissected anteriorly towards the cornea. A sharp point blade was used to create a paracentesis site at the 2 o'clock position. 0.2 cc non preserved Lidocaine with phenylephrine was injected into the anterior chamber. A 2.4 mm keratome was used to enter the anterior chamber through the groove. Viscoelastic was injected into the anterior chamber. An anterior capsulotomy was performed using Utrata forceps in a capsulorrhexis fashion. Hydrodissection and hydrodelineation were performed. Phacoemulsification was performed in [id number] technique. Following this, the I/A unit was used to remove residual cortex. Viscoelastic was injected into the capsular bag. The Intraocular lens was placed in the capsular bag. The I/A unit was used to remove residual viscoelastic. The wound was seen to be watertight under high and low pressure, and no sutures were placed. The intraocular lens was well centered. The pressure was adjusted in the eye to normal pressure. The 4-0 black silk sutures and lid speculum were removed. The eye was shielded after Besivance,prednisolone, and Cosopt drops were placed. The patient tolerated the procedure well and was sent to the Recovery Room in good condition.
== END 2020-10-01 09:03 | disposition home or self-care (01) ==
LOC: SC 06:48
PROVIDERS: ATTEND Ophthalmology
DX: H25.812 Combined forms of age-related cataract, left eye (principal); H57.03 Miosis; H47.013 Ischemic optic neuropathy, bilateral; H40.053 Ocular hypertension, bilateral; E78.00 Pure hypercholesterolemia, unspecified; Z87.891 Personal history of nicotine dependence; Z79.82 Long term (current) use of aspirin
CPT/HCPCS: 66984; V2632; J2250; J3490 ×4; A9270; J0171